=== PATIENT | male | born 1985 | race Caucasian/White ===

== ENCOUNTER 2017-07-03 16:46 | Emergency (ER) | payer OTHER ==
[~2017-07-03] VITALS: Ht 188 cm; Wt 78.2 kg
[2017-07-03 16:59] VITALS: TEMP 37.2; Ht 188 cm; Wt 78.2 kg
[2017-07-03] MEDS ORDERED: KETOROLAC TROMETHAMINE 30 MG/ML VIAL IV STA (17:11)
[2017-07-03] MEDS ORDERED: MoRPHine SULFATE 4 MG/ML 1 ML CARP\\VIAL IV STA ×2 (17:11→19:16)
[2017-07-03] MEDS ORDERED: SODIUM CHLORIDE 0.9% 1000ML 1,000 ML IV STA (17:11)
[2017-07-03] MEDS ORDERED: MIRT30TA2 PO (17:29)
[2017-07-03] MEDS ORDERED: DUTA1CAP3 PO (17:29)
[2017-07-03 17:54] LABS: BASO % 0.5 %; BASO ABS # 0.04 K/uL (0-0.2); EOS % 0.8 %; EOS ABS # 0.06 K/uL (0-0.5); HEMATOCRIT 42.5 % (42-52); HEMOGLOBIN 14.5 g/dL (14.0-18.0); IG# 0.01 K/uL (0.00-0.02); LYMPH % 30.8 %; LYMPH ABS # 2.25 K/uL (1.2-3.4); MEAN CELL VOLUME 87.1 fL (80-100); MEAN CORPUSCULAR HEMOGLOBIN 29.7 pg (25-34); MEAN CORPUSCULAR HGB CONC 34.1 g/dl (32-36); MEAN PLATELET VOLUME 10.3 fL (7.4-10.4); MONO % 7.7 %; MONO ABS # 0.56 K/uL (0.11-0.59); NEUT % 60.1 %; NEUT ABS # 4.39 K/uL (1.4-6.5); PLATELET COUNT 191 K/uL (130-400); RED CELL DISTRIBUTION WIDTH CV 13.1 % (11.5-14.5); RED CELL DISTRIBUTION WIDTH SD 42.1 fL (36.4-46.3); WHITE BLOOD COUNT 7.31 K/uL (4.8-10.8)
[2017-07-03 18:09] LABS: ALBUMIN 4.3 gm/dl (3.4-5.0); CALCIUM 9.5 mg/dl (8.5-10.1); CREATININE 0.8 mg/dl (0.60-1.40); POTASSIUM 3.7 mmol/L (3.5-5.1)
[2017-07-03 18:12] LABS: TOTAL PROTEIN 7.8 gm/dl (6.4-8.2)
--- NOTE | 2017-07-03 19:04 | DIAGNOSTIC IMAGING REPORT ---
CT SCAN OF THE ABDOMEN AND PELVIS WITH IV CONTRAST CLINICAL HISTORY: Right lower quadrant abdominal pain. COMPARISON STUDY: No priors. Diarrhea. Vomiting. TECHNIQUE: Following the IV administration of 94 cc of Optiray 320, CT scan of the abdomen and pelvis is performed from the lung bases to the proximal femora. Images are reviewed in the axial, sagittal, and coronal planes. IV contrast was administered without complication. A dose lowering technique was utilized adhering to the principles of ALARA. CT DOSE: 287.78 mGy.cm FINDINGS: Lung bases: The heart is normal in size and without pericardial effusion. The lung bases are clear. Liver: The contrast-enhanced liver is normal in size, contour, and attenuation. There is no intrahepatic biliary ductal dilatation. The hepatic veins and portal veins are patent. Gallbladder: Unremarkable. Spleen: Normal in size and attenuation. There are calcified splenic granulomas. Pancreas: Unremarkable. Adrenal glands: Unremarkable. Kidneys: The contrast enhanced kidneys are normal in size and without hydronephrosis. The kidneys enhance symmetrically. Abdominal vasculature: The abdominal aorta is normal in course and caliber. Bowel: The small bowel and colon are normal in course and caliber. The appendix is well-visualized and normal. Peritoneum: There is no intraperitoneal free air or abdominal ascites. Lymphadenopathy: None. Pelvic viscera: The bladder, prostate, and seminal vesicles are normal as visualized. Skeletal structures: No lytic or blastic lesions are seen. IMPRESSION: There are no acute infectious or inflammatory findings in the abdomen or pelvis. Electronically signed by: Jacob Garnica M.D. 07/03/2017 7:02 PM Dictated Date/Time: 07/03/2017 6:59 PM
[2017-07-03 19:07] VITALS: BP 125/74; PULSE 65; O2SAT 97
--- NOTE | 2017-07-03 20:56 | EMERGENCY ROOM VISIT NOTE ---
History Report prepared by Amor: Asha Oliveros Under the Supervision of: Dr. Loyd Way D.O. First contact with patient: 16:50 Chief Complaint: ABDOMINAL PAIN Stated Complaint: AB PAIN, DIARRHEA, HEMATURIA, VOMITING History of Present Illness The patient is a 32 year old male who presents to the Emergency Room with complaints of persistent RLQ abdominal pain starting this morning. The patient presents to the ED by EMS. The patient has been having this abdominal pain over the past 7 months. The pain goes through to his back. He has had a cystoscopy, colonoscopy, and upper endoscopy which were all negative around 5 months ago. He also has had trouble getting his urine flow started. He had a fever this morning. He has had 4 episodes of vomiting and 2 episodes of diarrhea since this morning. He denies any cough, rhinorrhea, or pain with urination. He denies having any medical problems. He still has his gallbladder and appendix. He denies any history of kidney stones. Source of History: patient Onset: this morning Position: abdomen (RLQ) Quality: other (pain) Timing: other (persistent) Associated Symptoms: + fevers, + nausea, + vomiting, + back pain, + diarrhea , + urinary symptoms, No cough Review of Systems See HPI for pertinent positives & negatives. A total of 10 systems reviewed and were otherwise negative. Past Medical & Surgical No history of kidney stones. Family History No pertinent family history stated. Social History Housing Status: other (fpc) Current/Historical Medications Scheduled Dutasteride (Dutasteride), 0.5 MG PO QAM Mirtazapine Soltab (Remeron Soltab), 30 MG PO HS Allergies Coded Allergies: No Known Allergies (Unverified , 07/03/17) Physical Exam Vital Signs Date Time Temp Pulse Resp B/P (MAP) Pulse Ox O2 Delivery O2 Flow Rate FiO2 07/03/17 19:07 65 18 125/74 97 Room Air 07/03/17 16:59 37.2 93 18 135/82 95 Room Air Physical Exam GENERAL: Laying in bed, holding right abdomen, mild distress EYE EXAM: normal conjunctiva. OROPHARYNX: no exudate, no erythema, lips, buccal mucosa, and tongue normal and mucous membranes are moist NECK: supple, no nuchal rigidity, no adenopathy, non-tender LUNGS: Clear to auscultation. Normal chest wall mechanics HEART: no murmurs, S1 normal and S2 normal ABDOMEN: abdomen soft, tenderness to palpation throughout the entire right side , normo-active bowel sounds, no masses, no rebound or guarding. BACK: Back is symmetrical on inspection and there is no deformity, no midline tenderness, no CVA tenderness. SKIN: no rashes and no bruising UPPER EXTREMITIES: upper extremities are grossly normal. LOWER EXTREMITIES: No pitting edema. NEURO EXAM: Normal sensorium, cranial nerves II-XII grossly intact, normal speech, no gross weakness of arms, no gross weakness of legs. Medical Decision & Procedures ER Provider Diagnostic Interpretation: Radiology results as stated below per my review and the radiologist's interpretation: CT SCAN OF THE ABDOMEN AND PELVIS WITH IV CONTRAST CLINICAL HISTORY: Right lower quadrant abdominal pain. COMPARISON STUDY: No priors. Diarrhea. Vomiting. TECHNIQUE: Following the IV administration of 94 cc of Optiray 320, CT scan of the abdomen and pelvis is performed from the lung bases to the proximal femora. Images are reviewed in the axial, sagittal, and coronal planes. IV contrast was administered without complication. A dose lowering technique was utilized adhering to the principles of ALARA. CT DOSE: 287.78 mGy.cm FINDINGS: Lung bases: The heart is normal in size and without pericardial effusion. The lung bases are clear. Liver: The contrast-enhanced liver is normal in size, contour, and attenuation. There is no intrahepatic biliary ductal dilatation. The hepatic veins and portal veins are patent. Gallbladder: Unremarkable. Spleen: Normal in size and attenuation. There are calcified splenic granulomas. Pancreas: Unremarkable. Adrenal glands: Unremarkable. Kidneys: The contrast enhanced kidneys are normal in size and without hydronephrosis. The kidneys enhance symmetrically. Abdominal vasculature: The abdominal aorta is normal in course and caliber. Bowel: The small bowel and colon are normal in course and caliber. The appendix is well-visualized and normal. Peritoneum: There is no intraperitoneal free air or abdominal ascites. Lymphadenopathy: None. Pelvic viscera: The bladder, prostate, and seminal vesicles are normal as visualized. Skeletal structures: No lytic or blastic lesions are seen. IMPRESSION: There are no acute infectious or inflammatory findings in the abdomen or pelvis. Electronically signed by: Jacob Garnica M.D. 07/03/2017 7:02 PM Dictated Date/Time: 07/03/2017 6:59 PM Laboratory Results 07/03/17 17:03 Red Blood Count 4.88, Mean Corpuscular Volume 87.1, Mean Corpuscular Hemoglobin 29.7, Mean Corpuscular Hemoglobin Concent 34.1, Mean Platelet Volume 10.3, Neutrophils (%) (Auto) 60.1, Lymphocytes (%) (Auto) 30.8, Monocytes (%) (Auto) 7.7, Eosinophils (%) (Auto) 0.8, Basophils (%) (Auto) 0.5, Neutrophils # (Auto) 4.39, Lymphocytes # (Auto) 2.25, Monocytes # (Auto) 0.56, Eosinophils # (Auto) 0.06, Basophils # (Auto) 0.04 07/03/17 17:03 Test 07/03/17 17:03 07/03/17 18:12 White Blood Count 7.31 K/uL (4.8-10.8) Red Blood Count 4.88 M/uL (4.7-6.1) Hemoglobin 14.5 g/dL (14.0-18.0) Hematocrit 42.5 % (42-52) Mean Corpuscular Volume 87.1 fL (80-100) Mean Corpuscular Hemoglobin 29.7 pg (25-34) Mean Corpuscular Hemoglobin Concent 34.1 g/dl (32-36) Platelet Count 191 K/uL (130-400) Mean Platelet Volume 10.3 fL (7.4-10.4) Neutrophils (%) (Auto) 60.1 % Lymphocytes (%) (Auto) 30.8 % Monocytes (%) (Auto) 7.7 % Eosinophils (%) (Auto) 0.8 % Basophils (%) (Auto) 0.5 % Neutrophils # (Auto) 4.39 K/uL (1.4-6.5) Lymphocytes # (Auto) 2.25 K/uL (1.2-3.4) Monocytes # (Auto) 0.56 K/uL (0.11-0.59) Eosinophils # (Auto) 0.06 K/uL (0-0.5) Basophils # (Auto) 0.04 K/uL (0-0.2) RDW Standard Deviation 42.1 fL (36.4-46.3) RDW Coefficient of Variation 13.1 % (11.5-14.5) Immature Granulocyte % (Auto) 0.1 % Immature Granulocyte # (Auto) 0.01 K/uL (0.00-0.02) Anion Gap 7.0 mmol/L (3-11) Est Creatinine Clear Calc Drug Dose 145.3 ml/min Estimated GFR () 136.0 Estimated GFR (Non- 117.4 BUN/Creatinine Ratio 9.1 (10-20) Calcium Level 9.5 mg/dl (8.5-10.1) Total Bilirubin 0.5 mg/dl (0.2-1) Direct Bilirubin 0.1 mg/dl (0-0.2) Aspartate Amino Transf (AST/SGOT) 30 U/L (15-37) Alanine Aminotransferase (ALT/SGPT) 46 U/L (12-78) Alkaline Phosphatase 63 U/L (45-117) Total Protein 7.8 gm/dl (6.4-8.2) Albumin 4.3 gm/dl (3.4-5.0) Lipase 346 U/L (73-393) Urine Color YELLOW Urine Appearance CLEAR (CLEAR) Urine pH 7.0 (4.5-7.5) Urine Specific [place] 1.009 (1.000-1.030) Urine Protein NEG (NEG) Urine Glucose (UA) NEG (NEG) Urine Ketones NEG (NEG) Urine Occult Blood NEG (NEG) Urine Nitrite NEG (NEG) Urine Bilirubin NEG (NEG) Urine Urobilinogen NEG (NEG) Urine Leukocyte Esterase NEG (NEG) Urine WBC (Auto) 0 /hpf (0-5) Urine RBC (Auto) 0-4 /hpf (0-4) Urine Hyaline Casts (Auto) 0 /lpf (0-5) Urine Epithelial Cells (Auto) 0-5 /lpf (0-5) Urine Bacteria (Auto) NEG (NEG) Laboratory results per my review. Medications Administered Medications (Trade) Dose Ordered Sig/Cira Route Start Time Stop Time Status Last Admin Dose Admin Sodium Chloride 1,000 ml @ 999 mls/hr Q1H1M STAT IV 07/03/17 17:11 07/03/17 18:11 DC 07/03/17 17:32 999 MLS/HR Ketorolac Tromethamine (Toradol Inj) 30 mg NOW STAT IV 07/03/17 17:11 07/03/17 17:13 DC 1/19/18 17:33 30 MG Morphine Sulfate (MoRPHine SULFATE INJ) 4 mg NOW STAT IV 07/03/17 17:11 07/03/17 17:13 DC 07/03/17 17:33 4 MG Morphine Sulfate (MoRPHine SULFATE INJ) 4 mg NOW STAT IV 07/03/17 19:16 07/03/17 19:17 DC 07/03/17 19:20 4 MG ED Course ED COURSE: Vital signs were reviewed and showed normal vitals. The patients medical record was reviewed The above diagnostic studies were performed and reviewed. ED treatments and interventions as stated above. 165: The patient was evaluated in room C3. A complete history and physical examination was performed. 171: Morphine Sulfate 4 mg IV, Toradol Inj 30 mg IV, NSS 1000 ml @ 999 mls/hr IV. 1809: I reevaluated the patient. His pain is slightly improved. 1915: Morphine Sulfate 4 mg IV. 1925: Upon reevaluation, the patient is feeling better. I discussed my findings with the patient and he understands and agrees with the treatment plan. Based on the patients age, coexisting illnesses, exam and lab findings the decision to treat as an outpatient was made. The patient remained stable while under my care. The patient appeared well at the time of discharge. Medical Decision Differential diagnoses includes but is not limited to gastritis, peptic ulcer disease, GERD, gallbladder disease, pancreatitis, small bowel obstruction, acute coronary syndrome, pericarditis, ischemic bowel, irritable bowel disease, irritable bowel syndrome, appendicitis, diverticulitis, malignancy, hernia, urinary tract infection, torsion, perforation, trauma, infectious. Patient is a 32-year-old male who presents to ER for right lower quadrant pain which has been present for the past 7 months. He has had this worked up extensively which included a colonoscopy, endoscopy and cystoscopy. Per his report these were all negative. He has vomited and had some diarrhea today. His abdominal exam shows no signs of peritonitis. Vitals were unremarkable. CBC all BMP, LFTs, bilirubin lipase is unremarkable. UA was negative. CT of abdomen and pelvis was completely benign. Patient was updated regards to his findings. He was given 2 doses of morphine. He was discharged follow-up with PCP/fpc physician. Discussed with Pt concerning signs and symptoms to watch out for. Pt was instructed to follow up with their PCP and discussed with the patient their option to return to the ED at anytime for persistent or worsening symptoms. The appropriate anticipatory guidance and out-patient management, including indications for return to the emergency department, were explained at length to the patient and understood. Medication Reconcilliation Current Medication List: was personally reviewed by me Blood Pressure Screening Patient's blood pressure: Normal blood pressure Blood pressure disposition: Did not require urgent referral Impression Primary Impression: Abdominal pain Scribe Attestation The scribe's documentation has been prepared under my direction and personally reviewed by me in its entirety. I confirm that the note above accurately reflects all work, treatment, procedures, and medical decision making performed by me. Departure Information Dispostion Home / Self-Care Referrals [facility], [facility] Forms Call Back Authorization, HOME CARE DOCUMENTATION FORM, IMPORTANT VISIT INFORMATION Patient Instructions Abdominal Pain - [facility], [facility] Additional Instructions Please follow up with your primary care doctor with in the next 24 hours. Any worsening of your symptoms, please return to the ED immediately. This includes any fevers greater than 100.4, worsening pain, chest pain, shortness breath, persistent nausea, vomiting, unable to eat or drink, or any other concerning signs or symptoms from your standpoint. Please take Tylenol or Motrin as needed for pain. Problem Qualifiers Primary Impression: Abdominal pain Abdominal location: unspecified location Qualified Codes: R10.9 - Unspecified abdominal pain
== END 2017-07-03 19:54 | disposition home or self-care (01) ==
LOC: C.EDC 16:51
DX: R10.9 Unspecified abdominal pain (principal)

== ENCOUNTER 2017-08-17 11:43 | Inpatient (IN) | payer OTHER ==
[~2017-08-17] VITALS: Ht 190.5 cm; Wt 71.6 kg
[~2017-08-17 11:43] MED LIST: DUTA1CAP3 PO; MIRT30TA2 PO
[2017-08-17 13:23] LABS: BASO % 0.9 %; BASO ABS # 0.05 K/uL (0-0.2); EOS % 3.1 %; EOS ABS # 0.17 K/uL (0-0.5); HEMATOCRIT 42.8 % (42-52); HEMOGLOBIN 14.6 g/dL (14.0-18.0); IG# 0.01 K/uL (0.00-0.02); MEAN CELL VOLUME 87.3 fL (80-100); MEAN CORPUSCULAR HEMOGLOBIN 29.8 pg (25-34); MEAN CORPUSCULAR HGB CONC 34.1 g/dl (32-36); MEAN PLATELET VOLUME 10.2 fL (7.4-10.4); MONO % 9.6 %; MONO ABS # 0.52 K/uL (0.11-0.59); NEUT % 49.2 %; NEUT ABS # 2.66 K/uL (1.4-6.5); PLATELET COUNT 170 K/uL (130-400); RED CELL DISTRIBUTION WIDTH CV 13.3 % (11.5-14.5); RED CELL DISTRIBUTION WIDTH SD 42.5 fL (36.4-46.3); WHITE BLOOD COUNT 5.41 K/uL (4.8-10.8)
--- NOTE | 2017-08-17 13:26 | DIAGNOSTIC IMAGING REPORT ---
HEAD WITHOUT CONTRAST (CT) CLINICAL HISTORY: 32 years-old Male presenting with EVALUATE WEAKNESS, off balance, facial numbness and tingling, blurred vision in the right, headache, symptoms worsening since yesterday. TECHNIQUE: Multidetector CT imaging of the head was performed without the use of intravenous contrast. IV contrast: None. A dose lowering technique was used consistent with the principles of ALARA (as low as reasonably achievable). COMPARISON: None. CT DOSE (mGy.cm): The estimated cumulative dose is 638.56 mGycm. FINDINGS: Stit[employer] Machine topogram: Unremarkable. Ventricles and sulci normal in size. Brain parenchyma normal in appearance with preserved mcguire-white differentiation. No mass effect or midline shift. No hemorrhage or acute territorial infarct. No extra-axial fluid collection. Paranasal sinuses and mastoid air cells clear. Calvarium intact. IMPRESSION: 1. No acute intracranial abnormality. Electronically signed by: Chapincito Nayak M.D. 08/17/2017 1:25 PM Dictated Date/Time: 08/17/2017 1:23 PM
--- NOTE | 2017-08-17 13:33 | DIAGNOSTIC IMAGING REPORT ---
CHEST ONE VIEW PORTABLE CLINICAL HISTORY: Weakness. Malaise. COMPARISON STUDY: No previous studies for comparison. FINDINGS: The cardiac and mediastinal contours are normal. There is no evidence of focal pulmonary consolidation. There is no evidence of failure. No pleural effusions are visualized.[ IMPRESSION: No active disease in the chest. Electronically signed by: Kristian Rod M.D. 08/17/2017 1:31 PM Dictated Date/Time: 08/17/2017 1:31 PM
[2017-08-17 13:36] LABS: PTT PATIENT 28.5 SECONDS (21.0-31.0)
[2017-08-17] MEDS ORDERED: ACETAMINOPHEN 500 MG TAB PO STA (13:44)
[2017-08-17 13:47] LABS: ALBUMIN 3.8 gm/dl (3.4-5.0); ALT/SGPT 60 U/L (12-78); BLOOD UREA NITROGEN 14 mg/dl (7-18); CALCIUM 9.3 mg/dl (8.5-10.1); CARBON DIOXIDE 32 mmol/L (21-32); CREATININE 0.87 mg/dl (0.60-1.40); GLUCOSE 94 mg/dl (70-99); LIPASE 304 U/L (73-393); POTASSIUM 4.3 mmol/L (3.5-5.1); SODIUM 136 mmol/L (136-145)
[2017-08-17 13:56] LABS: ALKALINE PHOSPHATASE 71 U/L (45-117); AST/SGOT 35 U/L (15-37); CKMB 0.6 ng/ml (0.5-3.6); TOTAL PROTEIN 7.4 gm/dl (6.4-8.2)
[2017-08-17 14:29] VITALS: O2SAT 97; Ht 190.5 cm; Wt 71.6 kg
[2017-08-17] MEDS ORDERED: ASPIRIN 81 MG ECTAB PO ONE (14:42)
[2017-08-17] MEDS ORDERED: PHARMACIST DISCHARGE MED REC CONSULT PRN (14:45)
[2017-08-17] MEDS ORDERED: LORAZEPAM 2 MG/ML 1 ML VIAL IV ONE (15:15)
--- NOTE | 2017-08-17 15:26 | History and Physical ---
History & Physical Date & Time of Service: Aug 17, 2017 at 15:23 Chief Complaint: Stroke Symptoms Primary Care Physician: Get LANDERS History of Present Illness Source: patient, clinic records, hospital records This is a 32yo M from [facility] with a PMH of tobacco use disorder, BPH and chronic hepatitis C who presents with headache and R-sided weakness x 2 days. Patient was in normal state of health until yesterday morning, when he woke up with a L-sided headache located near his religion. Headache pain is throbbing and constant. Associated with L sided tinnitus. Also noticed R sided weakness during lunch yesterday when he tried to lift his lunch tray with R hand and dropped it. When walking back to his room, he notes that he "veered to the right " while walking. Woke up today with tingling in R arm and blurred vision in R eye. Continues to feel weakness in his R arm and chest. Was evaluated in [facility] and sent to ED for further evaluation. He denies any recent trauma or LOC. Denies fevers, chills, diaphoresis, neck pain, chest pain, SOB, abdominal pain, nausea, vomiting, bowel or bladder changes. Denies confusion, facial droop or numbness in any extremity. Denies any family or personal history of stroke. Past Medical/Surgical History Medical Problems: (1) BPH (benign prostatic hyperplasia) Status: Chronic (2) Hepatitis C Status: Chronic (3) PTSD (post-traumatic stress disorder) Status: Chronic (4) Tobacco use disorder Status: Chronic Family History No pertinent family history No known family history of HTN, DM II, CVA or CKD. Social History Smoking Status: Current Every Day Smoker (3-5 cigarettes ) Alcohol Use: none Housing status: other Allergies Coded Allergies: No Known Allergies (Unverified , 08/17/17) Home Medications Scheduled Dutasteride (Dutasteride), 0.5 MG PO QAM Review of Systems Constitutional: No fever, No chills, No sweats, No weight loss, No fatigue Eyes: + worsening of vision (R eye), No eye pain, No redness, No discharge, No diplopia, No problem reported ENT: + tinnitus (Left ear ), No hearing loss, No unusual epistaxis, No nasal symptoms, No sore throat, No dental problems, No trouble swallowing, No problem reported Respiratory: No cough, No sputum, No wheezing, No shortness of breath, No dyspnea on exertion, No dyspnea at rest Cardiovascular: No chest pain, No orthopnea, No edema, No palpitations Abdomen: No pain, No nausea, No vomiting, No diarrhea, No constipation Musculoskeletal: No joint pain, No muscle pain, No swelling, No calf pain Neurologic: + weakness, + numbness/tingling (Numbness of RUE ), + balance problems, No memory loss, No paralysis, No vertigo, No problem reported Psychiatric: + anxiety, No depression symptoms, No anhedonism Physical Exam Vital Signs Date Time Temp Pulse Resp B/P (MAP) Pulse Ox O2 Delivery O2 Flow Rate FiO2 08/17/17 15:02 63 16 110/72 99 Room Air 08/17/17 14:29 97 Room Air 08/17/17 14:11 61 08/17/17 13:36 68 16 113/78 97 Room Air 08/17/17 13:36 97 Room Air 08/17/17 11:45 36.9 73 18 114/72 98 General Appearance: WD/WN, no apparent distress, + pertinent finding (Resting comfortably ) Head: normocephalic, atraumatic Eyes: normal inspection, PERRL, sclerae normal ENT: normal ENT inspection, hearing grossly normal, pharynx normal (moist mucous membranes ) Neck: supple, thyroid normal, trachea midline Respiratory/Chest: chest non-tender, lungs clear, normal breath sounds, no respiratory distress, no accessory muscle use Cardiovascular: regular rate, rhythm, no murmur, normal peripheral pulses Abdomen/GI: non tender, soft, no organomegaly Back: normal inspection Extremities/Musculoskelatal: normal inspection, no calf tenderness, no pedal edema Neurologic/Psych: dye and chemical coordinator II-XII nml as tested, alert, normal mood/affect, oriented x 3, + motor weakness (4/5 MART in R arm, forearm and hand. Trace weakness noted in RLE. LUE and LLE 5/5 MART. ), + pertinent finding (Sensation intact ) Skin: normal color, warm/dry, no rash Diagnostics Laboratory Results Results Past 24 Hours Test 08/17/17 12:20 08/17/17 12:55 08/17/17 15:00 Range/Units Urine Color YELLOW Urine Appearance CLEAR CLEAR Urine pH 8.0 4.5-7.5 Urine Specific [place] 1.011 1.000-1.030 Urine Protein NEG NEG Urine Glucose (UA) NEG NEG Urine Ketones NEG NEG Urine Occult Blood NEG NEG Urine Nitrite NEG NEG Urine Bilirubin NEG NEG Urine Urobilinogen NEG NEG Urine Leukocyte Esterase NEG NEG White Blood Count 5.41 4.8-10.8 K/uL Red Blood Count 4.90 4.7-6.1 M/uL Hemoglobin 14.6 14.0-18.0 g/dL Hematocrit 42.8 42-52 % Mean Corpuscular Volume 87.3 80-100 fL Mean Corpuscular Hemoglobin 29.8 25-34 pg Mean Corpuscular Hemoglobin Concent 34.1 32-36 g/dl Platelet Count 170 130-400 K/uL Mean Platelet Volume 10.2 7.4-10.4 fL Neutrophils (%) (Auto) 49.2 % Lymphocytes (%) (Auto) 37.0 % Monocytes (%) (Auto) 9.6 % Eosinophils (%) (Auto) 3.1 % Basophils (%) (Auto) 0.9 % Neutrophils # (Auto) 2.66 1.4-6.5 K/uL Lymphocytes # (Auto) 2.00 1.2-3.4 K/uL Monocytes # (Auto) 0.52 0.11-0.59 K/uL Eosinophils # (Auto) 0.17 0-0.5 K/uL Basophils # (Auto) 0.05 0-0.2 K/uL RDW Standard Deviation 42.5 36.4-46.3 fL RDW Coefficient of Variation 13.3 11.5-14.5 % Immature Granulocyte % (Auto) 0.2 % Immature Granulocyte # (Auto) 0.01 0.00-0.02 K/uL Prothrombin Time 10.5 9.0-12.0 SECONDS Prothromb Time International Ratio 1.0 0.9-1.1 Activated Partial Thromboplast Time 28.5 21.0-31.0 SECONDS Partial Thromboplastin Ratio 1.1 Sodium Level 136 136-145 mmol/L Potassium Level 4.3 3.5-5.1 mmol/L Chloride Level 101 98-107 mmol/L Carbon Dioxide Level 32 21-32 mmol/L Anion Gap 3.0 3-11 mmol/L Blood Urea Nitrogen 14 7-18 mg/dl Creatinine 0.87 0.60-1.40 mg/dl Est Creatinine Clear Calc Drug Dose 126.4 ml/min Estimated GFR () 131.4 Estimated GFR (Non- 113.4 BUN/Creatinine Ratio 15.8 10-20 Random Glucose 94 70-99 mg/dl Calcium Level 9.3 8.5-10.1 mg/dl Magnesium Level 2.1 1.8-2.4 mg/dl Total Bilirubin 0.6 0.2-1 mg/dl Direct Bilirubin 0.2 0-0.2 mg/dl Aspartate Amino Transf (AST/SGOT) 35 15-37 U/L Alanine Aminotransferase (ALT/SGPT) 60 12-78 U/L Alkaline Phosphatase 71 45-117 U/L Total Creatine Kinase 100 39-308 U/L Creatine Kinase MB 0.6 0.5-3.6 ng/ml Creatine Kinase MB Ratio 0.6 0-3.0 Troponin I < 0.015 0-0.045 ng/ml Total Protein 7.4 6.4-8.2 gm/dl Albumin 3.8 3.4-5.0 gm/dl Lipase 304 73-393 U/L Thyroid Stimulating Hormone (TSH) 0.598 0.300-4.500 uIu/ml Microbiology Results 08/17/17 Urine Culture, Received Pending Diagnostic Radiology CT head: IMPRESSION: 1. No acute intracranial abnormality. CXR normal Normal EKG Impression Assessment and Plan This is a 32yo M from [facility] with a PMH of tobacco use disorder, BPH and chronic hepatitis C who presents with headache and R-sided weakness x 2 days. Right sided weakness: -Weakness noted on exam: RUE, slight weakness in RLE -Rule out CVA -CT head-without acute intracranial abnormalities -Neuro consulted -MRI brain combo -CTA head/neck -Echo with bubble study -Check B12, RPR, fasting lipid panel -Aspirin -Neuro checks -PT, OT, speech therapy evaluations Headache: resolving -Located around L religion -Relieved with PO tylenol BPH: -Cont Avodart DVT Ppx: Lovenox SQ Code status: FULL PCP: [facility] Dispo: Admitted to telemetry. Discharge planning ordered for return to [facility]. Patient seen in collaboration with Dr. Siddiqi. Please see addendum. Attending Note: Patient is a 32 yr male presents with history of headache, right sided weakness , blurry vision, tinnitus and balance issues since 2 days duration. He is an active smoker. Denies any other relevant history. Denies Head trauma, LOC, speech problems, facial droop, Incontinence, chest pain, SOB. Physical Exam: Vitals signs as noted above General Appearance:Moderately built and nourished, no apparent distress Head: normocephalic, Atraumatic Eyes: normal inspection, EOMI, PERRL Neck: supple, Trachea midline Respiratory/Chest: Normal breath sounds, CTA Cardiovascular: S1, S2, No murmur Abdomen/GI:Soft, Non tender, Bowel sounds present Extremities/Musculoskelatal:normal inspection, no edema Neurologic/Psych:AAOX3, LUE 4/5, Otherwise grossly no focal deficits Skin:normal color,warm Assessment and Plan: Stroke Like Symptoms: Not a candidate for tPA- Passed the window period Admit in Tele CT head: showed no acute pathology CTA Head and Neck: unremarkable Stroke work up including lipid panel, A1C, MRI Brain, ECHO start Aspirin, Plavix, statins Neuro checks, Neurology consult PT/OT Allow permissive HTN in setting of acute CVA TSH:normal Tobacco Use Disorder: Corporate Accountant to quit smoking I personally reviewed the record. Patient is interviewed and examined at bedside. Patient's care is coordinated with Samantha Roberson PA-C. Please refer to the documentation above for details of patient's presentation and for discussion of other issues. Advanced Directives Existing Living Will: Yes Existing Power of Mold Construction Supervisor: Yes Resuscitation Status VTE Prophylaxis Will order VTE Prophylaxis: Yes
--- NOTE | 2017-08-17 16:09 | Neurology Consultation ---
Neurology Consultation Date of Consultation: Aug 17, 2017. Attending Physician: Primary Care Physician: Get LANDERS Reason for Consultation: stroke rule out History of Present Illness Source: patient, clinic records, hospital records Javier is a 32 year male prisoner from [facility] chronic hepatitis C, BPH, who states he had woke with a left sided headache yesterday which was throbbing and constant. He notice he was weak on the right and dropped his dinner tray and was walking to the right. He went to his cell and laid down. He told his [place] and was evaluated at the [facility]. They did a neuro eval and his wasn' t bad but on recheck he was unable to do coordinated moves so they brought him to the ED. Currently he is still having a headache, unable to see clearly to the right, right sided UE/LE weakness. He also states he has a high pitched tinnitus in the left ear. denies CP, SOB, abdominal pain, N, V, swallowing issues, past history of headaches, no falls or trauma. No family history of stroke, grandfather heart attack but lived to 90s. smokes 4-5 cigarettes per day , no other drugs, no current EtOH use. only medication he is taking is dutasteride for kidney inflammation? Past Medical/Surgical History Medical Problems: (1) Abdominal pain Status: Acute Social History Smoking Status: Current every day smoker Smokeless Tobacco Use: No Alcohol Use: none Drug Use: none Housing Status: other (prisoner) Allergies Coded Allergies: No Known Allergies (Unverified , 08/17/17) Current Inpatient Medications Current Inpatient Medications Medications (Trade) Dose Ordered Sig/Cira Route Start Time Stop Time Status Last Admin Dose Admin Atorvastatin Calcium (Lipitor Tab) 40 mg QAM PO 08/18/17 09:00 09/17/17 08:59 Aspirin (Ecotrin Tab) 81 mg QAM PO 08/18/17 09:00 09/17/17 08:59 Miscellaneous Information (Pharmacist Discharge Med Rec Consult) 1 ea UD PRN N/A 08/17/17 14:45 09/16/17 14:44 Acetaminophen (Tylenol Tab) 650 mg Q4H PRN PO 08/17/17 14:45 09/16/17 14:44 Miscellaneous Information (Order Awaiting Action) 1 ea QS N/A 08/17/17 16:00 4/4/18 15:59 Enoxaparin Sodium (Lovenox Inj) 40 mg Q24H SC 08/17/17 15:30 09/16/17 15:29 UNV Physical Exam Vital Signs (Past 24 Hrs): Date Time Temp Pulse Resp B/P (MAP) Pulse Ox O2 Delivery O2 Flow Rate FiO2 08/17/17 15:02 63 16 110/72 99 Room Air 08/17/17 14:29 97 Room Air 08/17/17 14:11 61 08/17/17 13:36 68 16 113/78 97 Room Air 08/17/17 13:36 97 Room Air 08/17/17 11:45 36.9 73 18 114/72 98 Physical Exam: Constitutional: appearance nourished, healthy and normal Ears, Nose, Mouth and Throat: mucous membranes moist, no injection and skin normal, eyes normal Cardiovascular: normal S-1 and S-2 and regular rate and rhythm Respiratory: course breath sounds Musculoskeletal: no peripheral edema and good distal pulses Skin: no stigmata of neurocutaneous disease noted and normal and intact Eyes: extraocular muscles intact (EOMI) and pupils equal, round and reactive to light (PERRL), good vascular pulsations NEUROLOGIC EXAMINATION: Mental status: Alert and interactive Oriented to full date and location Oriented to person Speech fluent with no evidence of aphasia Cranial Nerves smile eye brow raise Reflexes: Deep tendon reflexes were symmetrical and graded 2/5. Plantar responses were flexor. Sensory: decreased sensation to vibration, cool touch, GT proprioception absent on right , left all intact Coordination: finger to nose no bipass mild dysmetric Gait/Stance: Posture lying is bed shackles in place Motor: Negative for pronator drift of out stretched arms with eyes closed. Strength: right hand impress associate 5/5, biceps 4/5, triceps 4/5, hip flex 4/5, patellar flex ext 5/ 5 plantar flex /ext 2/5 left hand impress associate biceps triceps 5/5, hip flex 5/5, patellar,plantar flex ext 5/5 Laboratory Results Past 24 Hours: 08/17/17 12:55 Red Blood Count 4.90, Mean Corpuscular Volume 87.3, Mean Corpuscular Hemoglobin 29.8, Mean Corpuscular Hemoglobin Concent 34.1, Mean Platelet Volume 10.2, Neutrophils (%) (Auto) 49.2, Lymphocytes (%) (Auto) 37.0, Monocytes (%) (Auto) 9.6, Eosinophils (%) (Auto) 3.1, Basophils (%) (Auto) 0.9, Neutrophils # (Auto) 2.66, Lymphocytes # (Auto) 2.00, Monocytes # (Auto) 0.52, Eosinophils # (Auto) 0.17, Basophils # (Auto) 0.05 08/17/17 12:55 Test 08/17/17 12:20 08/17/17 12:55 08/17/17 15:00 Urine Color YELLOW Urine Appearance CLEAR (CLEAR) Urine pH 8.0 (4.5-7.5) Urine Specific [place] 1.011 (1.000-1.030) Urine Protein NEG (NEG) Urine Glucose (UA) NEG (NEG) Urine Ketones NEG (NEG) Urine Occult Blood NEG (NEG) Urine Nitrite NEG (NEG) Urine Bilirubin NEG (NEG) Urine Urobilinogen NEG (NEG) Urine Leukocyte Esterase NEG (NEG) White Blood Count 5.41 K/uL (4.8-10.8) Red Blood Count 4.90 M/uL (4.7-6.1) Hemoglobin 14.6 g/dL (14.0-18.0) Hematocrit 42.8 % (42-52) Mean Corpuscular Volume 87.3 fL (80-100) Mean Corpuscular Hemoglobin 29.8 pg (25-34) Mean Corpuscular Hemoglobin Concent 34.1 g/dl (32-36) Platelet Count 170 K/uL (130-400) Mean Platelet Volume 10.2 fL (7.4-10.4) Neutrophils (%) (Auto) 49.2 % Lymphocytes (%) (Auto) 37.0 % Monocytes (%) (Auto) 9.6 % Eosinophils (%) (Auto) 3.1 % Basophils (%) (Auto) 0.9 % Neutrophils # (Auto) 2.66 K/uL (1.4-6.5) Lymphocytes # (Auto) 2.00 K/uL (1.2-3.4) Monocytes # (Auto) 0.52 K/uL (0.11-0.59) Eosinophils # (Auto) 0.17 K/uL (0-0.5) Basophils # (Auto) 0.05 K/uL (0-0.2) RDW Standard Deviation 42.5 fL (36.4-46.3) RDW Coefficient of Variation 13.3 % (11.5-14.5) Immature Granulocyte % (Auto) 0.2 % Immature Granulocyte # (Auto) 0.01 K/uL (0.00-0.02) Prothrombin Time 10.5 SECONDS (9.0-12.0) Prothromb Time International Ratio 1.0 (0.9-1.1) Activated Partial Thromboplast Time 28.5 SECONDS (21.0-31.0) Partial Thromboplastin Ratio 1.1 Anion Gap 3.0 mmol/L (3-11) Est Creatinine Clear Calc Drug Dose 126.4 ml/min Estimated GFR () 131.4 Estimated GFR (Non- 113.4 BUN/Creatinine Ratio 15.8 (10-20) Calcium Level 9.3 mg/dl (8.5-10.1) Magnesium Level 2.1 mg/dl (1.8-2.4) Total Bilirubin 0.6 mg/dl (0.2-1) Direct Bilirubin 0.2 mg/dl (0-0.2) Aspartate Amino Transf (AST/SGOT) 35 U/L (15-37) Alanine Aminotransferase (ALT/SGPT) 60 U/L (12-78) Alkaline Phosphatase 71 U/L (45-117) Total Creatine Kinase 100 U/L (39-308) Creatine Kinase MB 0.6 ng/ml (0.5-3.6) Creatine Kinase MB Ratio 0.6 (0-3.0) Troponin I < 0.015 ng/ml (0-0.045) Total Protein 7.4 gm/dl (6.4-8.2) Albumin 3.8 gm/dl (3.4-5.0) Lipase 304 U/L (73-393) Thyroid Stimulating Hormone (TSH) 0.598 uIu/ml (0.300-4.500) Imaging CT head- . No acute intracranial abnormality. Impression 32 year old male sudden onset of right sided weakness, right sided vision blurred. Plan 1. start plavix 75 mg and aspirin 81 mg daily 2. no indication his blood pressure was elevated during this process- monitor 3. MRI brain with and without -r/o ischemic event 4. TTE r/o cardiac cause of event 5. HTN, DL, DM optimize- LDL <40 6. PT/OT speech for any further needs 7. will need an ophthalmology exam 8. carotid doppler- evaluate vessels of neck 9. further recommendations to follow I have seen and discussed above patient with Dr Dawn Bland, neurology Pt seen and examined, r hemiparesis with migrainous headache. Pt has visual complaints, no field cut,facial asymm aphasia or dysarthria. Mild R HP r arm 4+ rle 4/5 without drift, equal GEOVANNY. Mild dystaxia rue rle. Fairly dense r hemianesthesia but able to perform FNF with eyes closed. Imp migraine, poss migrainous infarction vs stroke. There are nonphysiologic features on exam. Rec vasc ray. Hypercoag state work-up only if scan shows infarct. TIANA Bland MD
[2017-08-17 16:59] VITALS: BP 105/66; PULSE 51; TEMP 37; O2SAT 99
[2017-08-17 17:10] VITALS: O2SAT 98
--- NOTE | 2017-08-17 17:11 | DIAGNOSTIC IMAGING REPORT ---
CT ANGIOGRAM OF THE BRAIN; CT ANGIOGRAM OF THE NECK CLINICAL HISTORY: Strokelike symptoms. COMPARISON STUDY: CT of the brain dated 08/17/2017. TECHNIQUE: Following the IV administration of 93 of Optiray 320, CT angiogram of the head and neck was performed from the aortic arch to the vertex. Images are reviewed in the axial, sagittal, and coronal planes. 3-D MIPS images are created and assessed. IV contrast was administered without complication. All measurements were calculated based on NASCET criteria. A dose lowering technique was utilized adhering to the principles of ALARA. CT DOSE: 565.74 mGy.cm FINDINGS: Brain parenchyma: The brain parenchyma is normal in appearance. There is no hemorrhage, mass effect, or evidence of acute territorial ischemia by CT criteria. There is no evidence of enhancing mass lesion on the angiogram phase images. The ventricles, sulci, and cisterns are normal in configuration. Jo-white matter differentiation is preserved. No extra-axial fluid collection is seen. Thoracic aorta: Visualized portions of the thoracic aorta are normal in caliber. The aortic arch demonstrates standard 3-vessel anatomy. Right carotid arterial system: The right common carotid artery is widely patent, as are the right internal and external carotid arteries. Left carotid arterial system: The left common carotid artery is widely patent, as are the left internal and external carotid arteries. Vertebral arteries: The vertebral arteries are widely patent and codominant. Subclavian arteries: Widely patent bilaterally. Intracranial vasculature: There is origin of the right posterior cerebral artery. The internal carotid arteries are patent at the skull base, as are the anterior and middle cerebral arteries bilaterally. The vertebrobasilar system and posterior cerebral arteries are widely patent. The vertebral arteries are codominant. There is no aneurysm, high-grade stenosis, or focal vessel cut off seen throughout the intracranial circulation. Jugular veins: Widely patent bilaterally. Dural sinuses: Patent. Lung apices: Erythematous change is seen at the apices. Soft tissues: The visualized pharyngeal soft tissues are normal in appearance noting angiographic phase technique. The oropharyngeal airway appears widely patent. The salivary and thyroid glands are normal in appearance. No cervical lymphadenopathy is seen. Skeletal structures: The calvarium appears intact. The cervical spine is within normal limits. Sinuses and mastoids: There is trace mucosal thickening within the maxillary antra. The remaining paranasal sinuses are clear. The mastoid air cells are well pneumatized. Cerumen is noted in the external auditory canal bilaterally. Oral cavity: Numerous dental caries are identified. Orbits: The bony orbits appear intact. Orbital contents are normal in appearance. IMPRESSION: 1. There is no hemorrhage, mass effect, or evidence of acute territorial ischemia by CT criteria. 2. Unremarkable CT angiogram of the brain. 3. Unremarkable CT angiogram of the neck. 4. Numerous dental caries are identified. Follow-up with dentistry is recommended. 5. Emphysema. Electronically signed by: Jacob Garnica M.D. 08/17/2017 5:10 PM Dictated Date/Time: 08/17/2017 4:59 PM
[2017-08-17] MEDS ORDERED: ENOXAPARIN 40 MG/0.4 ML SYR SC SCH (18:00)
[2017-08-17] MEDS: ACETAMINOPHEN 325 MG TAB PO PRN (18:01)
--- NOTE | 2017-08-17 18:55 | ECHOCARDIOGRAM REPORT ---
*NOTICE TO RECEIVING DEMOCRAT AGENCY This information is strictly Confidential and protected under [place] law. [place] law prohibits you from making any further disclosure of this information unless further disclosure is expressly permitted by the written consent of the person to whom it pertains or is authorized by law. A general authorization for the release of medical or other information is not sufficient for this purpose. Hospital accepts no responsibility if the information is made available to any other person, INCLUDING THE PATIENT. Interpretation Summary * Name: LUISA LECHUGA [id number] Study Date: 08/17/2017 03:59 PM BP: 110/72 mmHg * Patient Location: [facility] HR: 55 * : 1985 (M/d/yyyy) Gender: Male Height: 75 in * Age: 32 yrs Ethnicity: CA Weight: 163 lb * Ordering Physician: Samantha Roberson * Referring Physician: Get LANDERS * Performed By: Juan Pablo Ca RCS * * Reason For Study: Cerebral Ischemia/Embolus * BSA: 2.0 m2 * -- Conclusions -- * The left ventricle is normal in size. * Left ventricular systolic function is normal. * Ejection Fraction = 50-55%. * The right ventricular systolic function is normal. * The left atrial size is normal. * Right atrial size is normal. * There is no pericardial effusion. * No significant valvular pathology. Procedure Details * A complete two-dimensional transthoracic echocardiogram was performed (2D, M-mode, Doppler and color flow Doppler). * A saline contrast injection was performed to assess for cardiac shunting. * The injection was performed through an intravenous line in the left arm. * The attending nurse who injected the saline contrast was Blaine Cote RN. * A total of 20 cc of agitated saline was given. Left Ventricle * The left ventricle is normal in size. * There is normal left ventricular wall thickness. * Left ventricular systolic function is normal. * Ejection Fraction = 50-55%. Right Ventricle * The right ventricle is normal size. * The right ventricular systolic function is normal. Atria * The left atrial size is normal. * Right atrial size is normal. * No ASD detected; PFO is not assessed. Mitral Valve * The mitral valve anatomy is normal. * Significant mitral regurgitation is absent. Tricuspid Valve * The tricuspid valve anatomy is normal. * Significant tricuspid regurgitation is absent. Aortic Valve * The aortic valve is tricuspid. The leaflet thickness if normal. There is no aortic stenosis, and no significant insufficiency. * The aortic valve opens well. * There is no significant aortic regurgitation. Pulmonic Valve * The pulmonic valve is not well seen, but is grossly normal. * There is no significant pulmonary regurgitation. Great Vessels * The aortic root and proximal ascending aorta are normal sized. Pericardium/Pleural * There is no pericardial effusion. MMode 2D Measurements and Calculations IVSd 0.96 cm IVSs 1.2 cm LVIDd 5.3 cm LVIDs 3.8 cm LVPWd 0.97 cm LVPWs 1.3 cm IVS/LVPW 0.99 FS 28.1 % EDV(Teich) 136.0 ml ESV(Teich) 62.8 ml EF(Teich) 53.9 % EDV(cubed) 149.9 ml ESV(cubed) 55.8 ml EF(cubed) 62.8 % % IVS thick 27.3 % % LVPW thick 29.6 % LV mass(C)d 192.6 grams LV mass(C)dI 95.7 grams/m\S\2 LV mass(C)s 163.0 grams LV mass(C)sI 81.0 grams/m\S\2 SV(Teich) 73.3 ml SI(Teich) 36.4 ml/m\S\2 SV(cubed) 94.1 ml SI(cubed) 46.8 ml/m\S\2 Ao root diam 3.9 cm Ao root area 12.1 cm\S\2 ACS 2.4 cm LA dimension 3.0 cm LA/Ao 0.75 Doppler Measurements and Calculations MV E max al 49.3 cm/sec MV A max al 35.9 cm/sec MV E/A 1.4 MV P1/2t max al 55.6 cm/sec MV P1/2t 111.1 msec MVA(P1/2t) 2.0 cm\S\2 MV dec slope 146.7 cm/sec\S\2 MV dec time 0.22 sec Ao V2 max 75.8 cm/sec Ao max PG 2.3 mmHg Ao max PG (full) 0.30 mmHg LV V1 max PG 2.0 mmHg LV V1 max 70.6 cm/sec PA V2 max 72.9 cm/sec PA max PG 2.2 mmHg PI max al 160.5 cm/sec PI max PG 10.3 mmHg PI dec slope 136.3 cm/sec\S\2 PI P1/2t 344.9 msec
--- NOTE | 2017-08-17 19:04 | EMERGENCY ROOM VISIT NOTE ---
History Report prepared by Amor: Mónica Bajwa Under the Supervision of: Dr. Rolando Mark M.D. First contact with patient: 12:37 Chief Complaint: STROKE SYMPTOMS Stated Complaint: STROKE SYMPTOMS Nursing Triage Summary: yESTERDAY AM HEADACHE STARTED THEN AT LUNCH HE COULD NOT HOLD HIS LUNCH TRAY NOTICED RIGHT SIDE OF BODY NUMB AND HAVING PROBLEM WALKING STRAIGHT. LEANING MOTE TO RIGHT History of Present Illness The patient is a 32 year old male who presents to the Emergency Room with complaints of stroke like symptoms beginning yesterday at 1300. He reports that yesterday morning he woke up with a headache and his equilibrium was off. He notes he is weak on the right arm, right leg, has a left sided headache, and has visual disturbance on the right side. He reports he dropped his tray while getting lunch yesterday. He denies any recent trauma. Pt denies LOC, fevers, chills, diaphoresis, visual changes, neck pain, chest pain, breathing difficulties, nausea, vomiting, abdominal pain, back pain, melena, hematochezia , urinary symptoms, numbness, lymphadenopathy, rash, or other complaints. Source of History: patient Onset: 1300 yesterday Position: other (right sided) Associated Symptoms: + headache, + weakness Review of Systems See HPI for pertinent positives and negatives. A total of ten systems were reviewed and were otherwise negative. Past Medical & Surgical Medical Problems: (1) BPH (benign prostatic hyperplasia) (2) Hepatitis C (3) PTSD (post-traumatic stress disorder) (4) Tobacco use disorder Family History No pertinent family history Social History Smoking Status: Current Every Day Smoker Smokeless Tobacco Use: Unknown Alcohol Use: other (unknown) Housing Status: other Current/Historical Medications Scheduled Dutasteride (Dutasteride), 0.5 MG PO QAM Allergies Coded Allergies: No Known Allergies (Unverified , 08/17/17) Physical Exam Vital Signs Date Time Temp Pulse Resp B/P (MAP) Pulse Ox O2 Delivery O2 Flow Rate FiO2 08/17/17 14:29 97 Room Air 08/17/17 14:11 61 08/17/17 13:36 68 16 113/78 97 Room Air 08/17/17 13:36 97 Room Air 08/17/17 11:45 36.9 73 18 114/72 98 Physical Exam GENERAL: Awake, alert, well-appearing, in no distress HENT: Normocephalic, atraumatic. Oropharynx unremarkable. EYES: Normal conjunctiva. Sclera non-icteric. NECK: Supple. No nuchal rigidity. FROM. No masses. RESPIRATORY: Clear to auscultation. No wheezes. CARDIAC: Normal rate. Normal rhythm. No murmurs. No rubs. Extremities warm and well perfused. Pulses equal. No JVD. GI: Soft, non-distended. No tenderness to palpation. No rebound or guarding. No masses. RECTAL: Deferred. MUSCULOSKELETAL: Atraumatic. Chest examination reveals no tenderness. The back is symmetrical on inspection without obvious abnormality. There is no CVA tenderness to palpation. No joint edema. LOWER EXTREMITIES: Calves are equal size bilaterally and non-tender. No edema. No discoloration. NEURO: Normal sensorium. No sensory deficits noted. Mild right arm and leg weakness. SKIN: No rash or jaundice noted. Medical Decision & Procedures ER Provider Diagnostic Interpretation: Radiology results as stated below per my review and radiologist interpretation: HEAD WITHOUT CONTRAST (CT) CLINICAL HISTORY: 32 years-old Male presenting with EVALUATE WEAKNESS, off balance, facial numbness and tingling, blurred vision in the right, headache, symptoms worsening since yesterday. TECHNIQUE: Multidetector CT imaging of the head was performed without the use of intravenous contrast. IV contrast: None. A dose lowering technique was used consistent with the principles of ALARA (as low as reasonably achievable). COMPARISON: None. CT DOSE (mGy.cm): The estimated cumulative dose is 638.56 mGycm. FINDINGS: Heel Stainer topogram: Unremarkable. Ventricles and sulci normal in size. Brain parenchyma normal in appearance with preserved mcguire-white differentiation. No mass effect or midline shift. No hemorrhage or acute territorial infarct. No extra-axial fluid collection. Paranasal sinuses and mastoid air cells clear. Calvarium intact. IMPRESSION: 1. No acute intracranial abnormality. Electronically signed by: Chapincito Nayak M.D. 08/17/2017 1:25 PM Dictated Date/Time: 08/17/2017 1:23 PM CHEST ONE VIEW PORTABLE CLINICAL HISTORY: Weakness. Malaise. COMPARISON STUDY: No previous studies for comparison. FINDINGS: The cardiac and mediastinal contours are normal. There is no evidence of focal pulmonary consolidation. There is no evidence of failure. No pleural effusions are visualized.[ IMPRESSION: No active disease in the chest. Electronically signed by: Kristian Rod M.D. 08/17/2017 1:31 PM Dictated Date/Time: 08/17/2017 1:31 PM Laboratory Results 08/17/17 12:55 Red Blood Count 4.90, Mean Corpuscular Volume 87.3, Mean Corpuscular Hemoglobin 29.8, Mean Corpuscular Hemoglobin Concent 34.1, Mean Platelet Volume 10.2, Neutrophils (%) (Auto) 49.2, Lymphocytes (%) (Auto) 37.0, Monocytes (%) (Auto) 9.6, Eosinophils (%) (Auto) 3.1, Basophils (%) (Auto) 0.9, Neutrophils # (Auto) 2.66, Lymphocytes # (Auto) 2.00, Monocytes # (Auto) 0.52, Eosinophils # (Auto) 0.17, Basophils # (Auto) 0.05 08/17/17 12:55 Test 08/17/17 12:20 08/17/17 12:55 Urine Color YELLOW Urine Appearance CLEAR (CLEAR) Urine pH 8.0 (4.5-7.5) Urine Specific [place] 1.011 (1.000-1.030) Urine Protein NEG (NEG) Urine Glucose (UA) NEG (NEG) Urine Ketones NEG (NEG) Urine Occult Blood NEG (NEG) Urine Nitrite NEG (NEG) Urine Bilirubin NEG (NEG) Urine Urobilinogen NEG (NEG) Urine Leukocyte Esterase NEG (NEG) White Blood Count 5.41 K/uL (4.8-10.8) Red Blood Count 4.90 M/uL (4.7-6.1) Hemoglobin 14.6 g/dL (14.0-18.0) Hematocrit 42.8 % (42-52) Mean Corpuscular Volume 87.3 fL (80-100) Mean Corpuscular Hemoglobin 29.8 pg (25-34) Mean Corpuscular Hemoglobin Concent 34.1 g/dl (32-36) Platelet Count 170 K/uL (130-400) Mean Platelet Volume 10.2 fL (7.4-10.4) Neutrophils (%) (Auto) 49.2 % Lymphocytes (%) (Auto) 37.0 % Monocytes (%) (Auto) 9.6 % Eosinophils (%) (Auto) 3.1 % Basophils (%) (Auto) 0.9 % Neutrophils # (Auto) 2.66 K/uL (1.4-6.5) Lymphocytes # (Auto) 2.00 K/uL (1.2-3.4) Monocytes # (Auto) 0.52 K/uL (0.11-0.59) Eosinophils # (Auto) 0.17 K/uL (0-0.5) Basophils # (Auto) 0.05 K/uL (0-0.2) RDW Standard Deviation 42.5 fL (36.4-46.3) RDW Coefficient of Variation 13.3 % (11.5-14.5) Immature Granulocyte % (Auto) 0.2 % Immature Granulocyte # (Auto) 0.01 K/uL (0.00-0.02) Prothrombin Time 10.5 SECONDS (9.0-12.0) Prothromb Time International Ratio 1.0 (0.9-1.1) Activated Partial Thromboplast Time 28.5 SECONDS (21.0-31.0) Partial Thromboplastin Ratio 1.1 Anion Gap 3.0 mmol/L (3-11) Est Creatinine Clear Calc Drug Dose 126.4 ml/min Estimated GFR () 131.4 Estimated GFR (Non- 113.4 BUN/Creatinine Ratio 15.8 (10-20) Calcium Level 9.3 mg/dl (8.5-10.1) Magnesium Level 2.1 mg/dl (1.8-2.4) Total Bilirubin 0.6 mg/dl (0.2-1) Direct Bilirubin 0.2 mg/dl (0-0.2) Aspartate Amino Transf (AST/SGOT) 35 U/L (15-37) Alanine Aminotransferase (ALT/SGPT) 60 U/L (12-78) Alkaline Phosphatase 71 U/L (45-117) Total Creatine Kinase 100 U/L (39-308) Creatine Kinase MB 0.6 ng/ml (0.5-3.6) Creatine Kinase MB Ratio 0.6 (0-3.0) Troponin I < 0.015 ng/ml (0-0.045) Total Protein 7.4 gm/dl (6.4-8.2) Albumin 3.8 gm/dl (3.4-5.0) Lipase 304 U/L (73-393) Thyroid Stimulating Hormone (TSH) 0.598 uIu/ml (0.300-4.500) Laboratory results reviewed by me Medications Administered Medications (Trade) Dose Ordered Sig/Cira Route Start Time Stop Time Status Last Admin Dose Admin Acetaminophen (Tylenol Tab) 1,000 mg NOW STAT PO 08/17/17 13:44 08/17/17 13:45 DC 08/17/17 13:44 1,000 MG Acetaminophen (Tylenol Tab) 650 mg Q4H PRN PO 08/17/17 14:45 09/16/17 14:44 08/17/17 18:01 650 MG ECG Per My Interpretation Indication: weakness Rate (beats per minute): 60 Rhythm: normal sinus Findings: no acute ischemic change, no ectopy, other (RSR prime pattern. Normal intervals otherwise.) ED Course 1300: The patient was evaluated in room A10. A complete history and physical exam was performed. 1344: Tylenol Tab 1000 mg PO 1410: Discussed the patient's case. The patient will be evaluated by Dr. Jersey Roberson, [facility]ist, for further treatment and disposition. Medical Decision Triage Nursing notes reviewed. The patient's presentation and history were concerning for neuro symptoms. Etiologies such as TIA, CVA, metabolic, infection, hypo/hyperglycemia, electrolyte abnormalities, cardiac sources, intracerebral event, toxicologic, neurologic, as well as others were entertained. The patient was evaluated. He had right-sided weakness. He complained of a headache. He had no fever, leukocytosis, or meningeal findings to suggest meningitis. His symptoms were subtle in onset. He had a negative CT scan. The patient's blood work was unremarkable. ECG did not show any dysrhythmia. Given his symptoms further management will be necessary as his workup cannot be easily completed as an outpatient. Consultation was made with the hospitalist service. The patient was evaluated in the Emergency Room for further management. Medication Reconcilliation Current Medication List: was personally reviewed by me Blood Pressure Screening Patient's blood pressure: Normal blood pressure Blood pressure disposition: Did not require urgent referral Consults Time Called: 1400 Consulting Physician: Samantha Roberson PA-C, [facility] team Returned Call: 1410 she will further evaluate the patient. Impression Primary Impression: Right sided weakness Additional Impressions: Headache Stroke-like symptoms Scribe Attestation The scribe's documentation has been prepared under my direction and personally reviewed by me in its entirety. I confirm that the note above accurately reflects all work, treatment, procedures, and medical decision making performed by me. Departure Information Dispostion Being Evaluated By Hospitalist (Dr. Jersey Roberson, [facility] Hospitalist ) Referrals [facility] (PCP) Patient Instructions My [facility] Problem Qualifiers
[2017-08-17] MEDS ORDERED: LORAZEPAM 2 MG/ML 1 ML VIAL IV SCH (19:30)
[2017-08-17 20:38] VITALS: BP 112/68; PULSE 54; TEMP 36.5; O2SAT 98
[2017-08-17] MEDS ORDERED: GADAVIST IV PRN (20:45)
--- NOTE | 2017-08-17 21:02 | DIAGNOSTIC IMAGING REPORT ---
BRAIN COMBO CLINICAL HISTORY: stroke rule out mental status change COMPARISON STUDY: No previous studies for comparison. TECHNIQUE: Utilizing a 1.5 Melida magnet and dedicated coil, multiplanar, multiecho imaging of the brain was performed pre and postcontrast administration. IV administration of 7.4 mL of Gadavist contrast was uneventful. FINDINGS: Diffusion-weighted images are negative for an acute ischemic event. Cerebellar tonsils are low-lying. No evidence for hydrocephalus. Ventricular system is midline. Signal characteristics are uniform throughout. No abnormal postcontrast enhancement. IMPRESSION: 1. Low-lying cerebellar tonsils. 2. Otherwise normal MRI of the brain. 3. No evidence for abnormal postcontrast enhancement. The above report was generated using voice recognition software. It may contain grammatical, syntax or spelling errors. Electronically signed by: Ko Saavedra M.D. 08/17/2017 9:01 PM Dictated Date/Time: 08/17/2017 8:58 PM
[2017-08-18 00:03] VITALS: BP 99/61; PULSE 65; TEMP 36.5; O2SAT 98
[2017-08-18 03:45] VITALS: BP 98/60; PULSE 51; TEMP 36.5; O2SAT 98
[2017-08-18 06:22] LABS: HEMOGLOBIN A1C 5.3 % (4.5-5.6)
[2017-08-18 06:32] LABS: BASO % 0.9 %; BASO ABS # 0.05 K/uL (0-0.2); EOS ABS # 0.29 K/uL (0-0.5); HEMATOCRIT 42.6 % (42-52); HEMOGLOBIN 14.7 g/dL (14.0-18.0); IG# 0.01 K/uL (0.00-0.02); LYMPH % 41.2 %; LYMPH ABS # 2.38 K/uL (1.2-3.4); MEAN CELL VOLUME 86.9 fL (80-100); MEAN CORPUSCULAR HGB CONC 34.5 g/dl (32-36); MONO % 9.7 %; MONO ABS # 0.56 K/uL (0.11-0.59); NEUT ABS # 2.49 K/uL (1.4-6.5); PLATELET COUNT 164 K/uL (130-400); RED CELL DISTRIBUTION WIDTH CV 13.2 % (11.5-14.5); RED CELL DISTRIBUTION WIDTH SD 42.3 fL (36.4-46.3); WHITE BLOOD COUNT 5.78 K/uL (4.8-10.8)
[2017-08-18 07:02] LABS: CALCIUM 9.1 mg/dl (8.5-10.1); CREATININE 0.85 mg/dl (0.60-1.40)
[2017-08-18 07:59] VITALS: BP 124/85; PULSE 72; TEMP 36.8; O2SAT 98
[2017-08-18] MEDS ORDERED: KETOROLAC TROMETHAMINE 30 MG/ML VIAL IV STA (08:52)
[2017-08-18] MEDS ORDERED: ASPIRIN 81 MG ECTAB PO SCH (09:00)
[2017-08-18] MEDS ORDERED: ATORVASTATIN 40 MG TAB PO SCH (09:00)
[2017-08-18] MEDS ORDERED: CLOPIDOGREL BISULFATE 75 MG TAB PO SCH (09:00)
[2017-08-18 12:23] VITALS: BP 131/69; PULSE 69; TEMP 37; O2SAT 99
[2017-08-18] MEDS: ACETAMINOPHEN 325 MG TAB PO PRN (12:23)
[2017-08-18] MEDS ORDERED: SUMATRIPTAN SUCCINATE 6 MG/0.5 ML VIAL SQ ONE (12:30)
--- NOTE | 2017-08-18 14:27 | Neurology Progress Notes ---
Neurology Progress Note Date of Service Aug 18, 2017. Samantha Herrera is a 32 year male prisoner from [facility] chronic hepatitis C, BPH, who states he had woke with a left sided headache yesterday which was throbbing and constant. He notice he was weak on the right and dropped his dinner tray and was walking to the right. He went to his cell and laid down. He told his Tigre and was evaluated at the [facility]. They did a neuro eval and his wasn' t bad but on recheck he was unable to do coordinated moves so they brought him to the ED. Currently he is still having a headache, unable to see clearly to the right, right sided UE/LE weakness. He also states he has a high pitched tinnitus in the left ear. denies CP, SOB, abdominal pain, N, V, swallowing issues, past history of headaches, no falls or trauma. No family history of stroke, grandfather heart attack but lived to 90s. smokes 4-5 cigarettes per day , no other drugs, no current EtOH use. only medication he is taking is dutasteride for kidney inflammation? Today he states the weakness in his arm and leg are unchanged and he still has the headache. He also states he had a visual field cut from midline to right that is blurred vision. denies CP, SOB, abdominal pain, increased weakness, numbness tingling, N, V. Objective Date Time Temp Pulse Resp B/P (MAP) Pulse Ox O2 Delivery O2 Flow Rate FiO2 08/18/17 12:23 37.0 69 18 131/69 (89) 99 08/18/17 12:00 Room Air 08/18/17 08:00 Room Air 08/18/17 07:59 36.8 72 18 124/85 (98) 98 08/18/17 04:00 Room Air 08/18/17 03:45 36.5 51 16 98/60 (73) 98 Room Air 08/18/17 00:03 36.5 65 17 99/61 (74) 98 Room Air 08/18/17 00:00 Room Air 08/17/17 20:38 36.5 54 18 112/68 (83) 98 Room Air 08/17/17 20:00 Room Air 08/17/17 17:10 55 16 106/72 98 3/5/18 17:00 Room Air 08/17/17 16:59 37.0 51 18 105/66 (79) 99 Room Air 08/17/17 15:02 63 16 110/72 99 Room Air 08/17/17 14:29 97 Room Air Last 24 Hours Test 08/17/17 15:43 08/18/17 06:04 Vitamin B12 Level 1133 pg/mL White Blood Count 5.78 K/uL Red Blood Count 4.90 M/uL Hemoglobin 14.7 g/dL Hematocrit 42.6 % Mean Corpuscular Volume 86.9 fL Mean Corpuscular Hemoglobin 30.0 pg Mean Corpuscular Hemoglobin Concent 34.5 g/dl Platelet Count 164 K/uL Mean Platelet Volume 10.0 fL Neutrophils (%) (Auto) 43.0 % Lymphocytes (%) (Auto) 41.2 % Monocytes (%) (Auto) 9.7 % Eosinophils (%) (Auto) 5.0 % Basophils (%) (Auto) 0.9 % Neutrophils # (Auto) 2.49 K/uL Lymphocytes # (Auto) 2.38 K/uL Monocytes # (Auto) 0.56 K/uL Eosinophils # (Auto) 0.29 K/uL Basophils # (Auto) 0.05 K/uL RDW Standard Deviation 42.3 fL RDW Coefficient of Variation 13.2 % Immature Granulocyte % (Auto) 0.2 % Immature Granulocyte # (Auto) 0.01 K/uL Sodium Level 137 mmol/L Potassium Level 4.0 mmol/L Chloride Level 102 mmol/L Carbon Dioxide Level 30 mmol/L Anion Gap 5.0 mmol/L Blood Urea Nitrogen 14 mg/dl Creatinine 0.85 mg/dl Est Creatinine Clear Calc Drug Dose 125.2 ml/min Estimated GFR () 132.7 Estimated GFR (Non- 114.5 BUN/Creatinine Ratio 16.8 Random Glucose 81 mg/dl Calcium Level 9.1 mg/dl Triglycerides Level 67 mg/dl Cholesterol Level 128 mg/dl HDL Cholesterol 52 mg/dl LDL Cholesterol, Calculated 63 mg/dl VLDL Cholesterol, Calculated 13 mg/dl Cholesterol/HDL Ratio 2.5 Imaging: CTA brain and neck - There is no hemorrhage, mass effect, or evidence of acute territorial ischemia by CT criteria. Unremarkable CT angiogram of the brain. Unremarkable CT angiogram of the neck. Numerous dental caries are identified. Follow-up with dentistry is recommended. Emphysema. MRI brain combo- Low-lying cerebellar tonsils. Otherwise normal MRI of the brain. No evidence for abnormal postcontrast enhancement. TTE- * The left ventricle is normal in size. * Left ventricular systolic function is normal. * Ejection Fraction = 50-55%. * The right ventricular systolic function is normal. * The left atrial size is normal. * Right atrial size is normal. * There is no pericardial effusion. * No significant valvular pathology. * no ASD Exam: Physical Exam: Constitutional: appearance nourished, healthy and normal Ears, Nose, Mouth and Throat: mucous membranes moist, no injection and skin normal, eyes normal Cardiovascular: normal S-1 and S-2 and regular rate and rhythm Respiratory: course breath sounds Musculoskeletal: no peripheral edema and good distal pulses Skin: no stigmata of neurocutaneous disease noted and normal and intact Eyes: extraocular muscles intact (EOMI) and pupils equal, round and reactive to light (PERRL), right field blurred from midpoint to right NEUROLOGIC EXAMINATION: Mental status: Alert and interactive Oriented to full date and location Oriented to person Speech fluent with no evidence of aphasia Cranial Nerves smile eye brow raise symmetric Reflexes: Deep tendon reflexes were symmetrical and graded 2/5. Plantar responses were flexor. Sensory: cool touch decrease on right LE Coordination: finger to nose with no bipass Gait/Stance: lying in bed shackled right arm left leg Motor: Negative for pronator drift of out stretched arms with eyes closed. Strength: hand distribution associate biceps triceps deltoid 4+/5 right hand distribution associate biceps triceps deltoids 5/5 left hip flex 5/5 bilaterally patellar planter flex 5/5 bilaterally Current Inpatient Medications Medications (Trade) Dose Ordered Sig/Cira Route Start Time Stop Time Status Last Admin Dose Admin Atorvastatin Calcium (Lipitor Tab) 40 mg QAM PO 08/18/17 09:00 09/17/17 08:59 08/18/17 08:35 40 MG Aspirin (Ecotrin Tab) 81 mg QAM PO 08/18/17 09:00 09/17/17 08:59 08/18/17 08:35 81 MG Miscellaneous Information (Pharmacist Discharge Med Rec Consult) 1 ea UD PRN N/A 08/17/17 14:45 09/16/17 14:44 Acetaminophen (Tylenol Tab) 650 mg Q4H PRN PO 08/17/17 14:45 09/16/17 14:44 08/18/17 12:23 650 MG Miscellaneous Information (Order Awaiting Action) 1 ea QS N/A 08/17/17 16:00 09/16/17 15:59 Enoxaparin Sodium (Lovenox Inj) 40 mg DAILY@1800 SC 08/17/17 18:00 09/16/17 17:59 08/17/17 18:01 40 MG Clopidogrel Bisulfate (plAVix TAB) 75 mg QAM PO 08/18/17 09:00 09/17/17 08:59 08/18/17 08:35 75 MG Gadobutrol (Gadavist) 7.4 mmol UD PRN IV 08/17/17 20:45 08/21/17 20:44 Impression 32 year old male sudden onset of right sided weakness, right sided vision blurred. Plan 1. stop plavix and asa 2. no indication his blood pressure was elevated during this process- monitor 3. MRI brain with and without -r/o ischemic event 4. TTE r/o cardiac cause of event- no ASD 5. HTN, DL, DM optimize- LDL <40- his cholesterol is good at this time 6. PT/OT speech for any further needs 7. will need an ophthalmology exam he is still complaining of blurred vision in his right eye 8. CTA head and neck no abnormalities seen 9. he is now complaining of an ice pick type headache indocin may be a good option, will try a prednisone taper first. 30 mg x 3D, 20 mg x 3 D, 10 mg x 3d then stop. 10. no further work up needed will need to schedule with ophthalmology if can't be done during this admission 11. ok from neurology perspective to discharge back to [facility]. I have seen and discussed above patient with Dr Dawn Bland, neurology Pt seen and examined suspect complicated migraine vs headache with malingering. Try prednisone taper. Does not require prophylactic meds for migraine at present. Pt should see us in follow-up if headaches persists. TIANA Bland MD
[2017-08-18 15:24] VITALS: BP 107/62; PULSE 65; TEMP 36.9; O2SAT 94
[2017-08-18] MEDS ORDERED: PRD10 PO (15:58)
[2017-08-18] MEDS ORDERED: IND/25 PO (16:09)
--- NOTE | 2017-08-18 16:42 | Progress Note ---
Internal Med Progress Note Date of Service: Aug 18, 2017. Provider Documentation: SUBJECTIVE: Reports numbness of right extremities. reports headache left side of head OBJECTIVE: Exam: General- no acute distress Eyes- EOMI Neck- neck midline, no JVD Lungs- CTABL Heart- RRR Abdomen-abdomen, soft, + bowel sounds Extremities/Neuro- diminished response to pain when pressing on nailbeds of left hand compared to the right, motor strength of upper extremities symmetric ASSESSMENT & PLAN: Hospital Course Patient was evaluated in the hospital for headache, blurred vision in right eye , and right sided numbness/diminished response to pain sensation /weakness, Patient had multiple imaging studies that did not find evidence for stroke. Patient was evaluated with inpatient neurology service. Likely diagnosis is complicated migraine as cause of the symptoms Imaging studies as listed Head CT Ventricles and sulci normal in size. Brain parenchyma normal in appearance with preserved jo-white differentiation. No mass effect or midline shift. No hemorrhage or acute territorial infarct. No extra-axial fluid collection. Paranasal sinuses and mastoid air cells clear. Calvarium intact. IMPRESSION: 1. No acute intracranial abnormality Brain MRI Diffusion-weighted images are negative for an acute ischemic event. Cerebellar tonsils are low-lying. No evidence for hydrocephalus. Ventricular system is midline. Signal characteristics are uniform throughout. No abnormal postcontrast enhancement. IMPRESSION: 1. Low-lying cerebellar tonsils. 2. Otherwise normal MRI of the brain. 3. No evidence for abnormal postcontrast enhancement CT ANGIOGRAM OF THE BRAIN; CT ANGIOGRAM OF THE NECK FINDINGS: Brain parenchyma: The brain parenchyma is normal in appearance. There is no hemorrhage, mass effect, or evidence of acute territorial ischemia by CT criteria. There is no evidence of enhancing mass lesion on the angiogram phase images. The ventricles, sulci, and cisterns are normal in configuration. Jo-white matter differentiation is preserved. No extra-axial fluid collection is seen. Thoracic aorta: Visualized portions of the thoracic aorta are normal in caliber. The aortic arch demonstrates standard 3-vessel anatomy. Right carotid arterial system: The right common carotid artery is widely patent , as are the right internal and external carotid arteries. Left carotid arterial system: The left common carotid artery is widely patent, as are the left internal and external carotid arteries. Vertebral arteries: The vertebral arteries are widely patent and codominant. Subclavian arteries: Widely patent bilaterally. Intracranial vasculature: There is origin of the right posterior cerebral artery. The internal carotid arteries are patent at the skull base, as are the anterior and middle cerebral arteries bilaterally. The vertebrobasilar system and posterior cerebral arteries are widely patent. The vertebral arteries are codominant. There is no aneurysm, high-grade stenosis, or focal vessel cut off seen throughout the intracranial circulation. Jugular veins: Widely patent bilaterally. Dural sinuses: Patent. Lung apices: Erythematous change is seen at the apices. Soft tissues: The visualized pharyngeal soft tissues are normal in appearance noting angiographic phase technique. The oropharyngeal airway appears widely patent. The salivary and thyroid glands are normal in appearance. No cervical lymphadenopathy is seen. Skeletal structures: The calvarium appears intact. The cervical spine is within normal limits. Sinuses and mastoids: There is trace mucosal thickening within the maxillary antra. The remaining paranasal sinuses are clear. The mastoid air cells are well pneumatized. Cerumen is noted in the external auditory canal bilaterally. Oral cavity: Numerous dental caries are identified. Orbits: The bony orbits appear intact. Orbital contents are normal in appearance. IMPRESSION: 1. There is no hemorrhage, mass effect, or evidence of acute territorial ischemia by CT criteria. 2. Unremarkable CT angiogram of the brain. DISPOSITION: discharge to correctional facility follow up appointments: primary care doctor and at the request of inpatient neurology service the patient should have ophthalmology evaluation discharge medications: prednisone and indomethacin Vital Signs: Date Time Temp Pulse Resp B/P (MAP) Pulse Ox O2 Delivery O2 Flow Rate FiO2 08/18/17 15:24 36.9 65 20 107/62 (77) 94 Room Air 08/18/17 12:23 37.0 69 18 131/69 (89) 99 08/18/17 12:00 Room Air 08/18/17 08:00 Room Air 08/18/17 07:59 36.8 72 18 124/85 (98) 98 08/18/17 04:00 Room Air 08/18/17 03:45 36.5 51 16 98/60 (73) 98 Room Air 08/18/17 00:03 36.5 65 17 99/61 (74) 98 Room Air 08/18/17 00:00 Room Air 08/17/17 20:38 36.5 54 18 112/68 (83) 98 Room Air 08/17/17 20:00 Room Air 08/17/17 17:10 55 16 106/72 98 08/17/17 17:00 Room Air 08/17/17 16:59 37.0 51 18 105/66 (79) 99 Room Air Lab Results: Results Past 24 Hours Test 08/18/17 06:04 Range/Units White Blood Count 5.78 4.8-10.8 K/uL Red Blood Count 4.90 4.7-6.1 M/uL Hemoglobin 14.7 14.0-18.0 g/dL Hematocrit 42.6 42-52 % Mean Corpuscular Volume 86.9 80-100 fL Mean Corpuscular Hemoglobin 30.0 25-34 pg Mean Corpuscular Hemoglobin Concent 34.5 32-36 g/dl Platelet Count 164 130-400 K/uL Mean Platelet Volume 10.0 7.4-10.4 fL Neutrophils (%) (Auto) 43.0 % Lymphocytes (%) (Auto) 41.2 % Monocytes (%) (Auto) 9.7 % Eosinophils (%) (Auto) 5.0 % Basophils (%) (Auto) 0.9 % Neutrophils # (Auto) 2.49 1.4-6.5 K/uL Lymphocytes # (Auto) 2.38 1.2-3.4 K/uL Monocytes # (Auto) 0.56 0.11-0.59 K/uL Eosinophils # (Auto) 0.29 0-0.5 K/uL Basophils # (Auto) 0.05 0-0.2 K/uL RDW Standard Deviation 42.3 36.4-46.3 fL RDW Coefficient of Variation 13.2 11.5-14.5 % Immature Granulocyte % (Auto) 0.2 % Immature Granulocyte # (Auto) 0.01 0.00-0.02 K/uL Sodium Level 137 136-145 mmol/L Potassium Level 4.0 3.5-5.1 mmol/L Chloride Level 102 98-107 mmol/L Carbon Dioxide Level 30 21-32 mmol/L Anion Gap 5.0 3-11 mmol/L Blood Urea Nitrogen 14 7-18 mg/dl Creatinine 0.85 0.60-1.40 mg/dl Est Creatinine Clear Calc Drug Dose 125.2 ml/min Estimated GFR () 132.7 Estimated GFR (Non- 114.5 BUN/Creatinine Ratio 16.8 10-20 Random Glucose 81 70-99 mg/dl Calcium Level 9.1 8.5-10.1 mg/dl Triglycerides Level 67 0-150 mg/dl Cholesterol Level 128 0-200 mg/dl HDL Cholesterol 52 mg/dl LDL Cholesterol, Calculated 63 mg/dl VLDL Cholesterol, Calculated 13 mg/dl Cholesterol/HDL Ratio 2.5
--- NOTE | 2017-08-18 16:50 | Discharge Instructions ---
Discharge Instructions Date of Service Aug 18, 2017. Admission Reason for Admission: Headache, Right Sided Weakness Discharge Discharge Diagnosis / Problem: complicate migraine,headache,right eye blurred vision,right side weakness Discharge Goals Goal(s): Improve function Activity Recommendations Activity Limitations: per Instructions/Follow-up section Shower/Bathe: no limitations . Instructions / Follow-Up Instructions / Follow-Up Hospital Course Patient was evaluated in the hospital for headache, blurred vision in right eye , and right sided numbness/diminished response to pain sensation /weakness, Patient had multiple imaging studies that did not find evidence for stroke. Patient was evaluated with inpatient neurology service. Likely diagnosis is complicated migraine as cause of the symptoms Imaging studies as listed Head CT Ventricles and sulci normal in size. Brain parenchyma normal in appearance with preserved jo-white differentiation. No mass effect or midline shift. No hemorrhage or acute territorial infarct. No extra-axial fluid collection. Paranasal sinuses and mastoid air cells clear. Calvarium intact. IMPRESSION: 1. No acute intracranial abnormality Brain MRI Diffusion-weighted images are negative for an acute ischemic event. Cerebellar tonsils are low-lying. No evidence for hydrocephalus. Ventricular system is midline. Signal characteristics are uniform throughout. No abnormal postcontrast enhancement. IMPRESSION: 1. Low-lying cerebellar tonsils. 2. Otherwise normal MRI of the brain. 3. No evidence for abnormal postcontrast enhancement CT ANGIOGRAM OF THE BRAIN; CT ANGIOGRAM OF THE NECK FINDINGS: Brain parenchyma: The brain parenchyma is normal in appearance. There is no hemorrhage, mass effect, or evidence of acute territorial ischemia by CT criteria. There is no evidence of enhancing mass lesion on the angiogram phase images. The ventricles, sulci, and cisterns are normal in configuration. Jo-white matter differentiation is preserved. No extra-axial fluid collection is seen. Thoracic aorta: Visualized portions of the thoracic aorta are normal in caliber. The aortic arch demonstrates standard 3-vessel anatomy. Right carotid arterial system: The right common carotid artery is widely patent , as are the right internal and external carotid arteries. Left carotid arterial system: The left common carotid artery is widely patent, as are the left internal and external carotid arteries. Vertebral arteries: The vertebral arteries are widely patent and codominant. Subclavian arteries: Widely patent bilaterally. Intracranial vasculature: There is origin of the right posterior cerebral artery. The internal carotid arteries are patent at the skull base, as are the anterior and middle cerebral arteries bilaterally. The vertebrobasilar system and posterior cerebral arteries are widely patent. The vertebral arteries are codominant. There is no aneurysm, high-grade stenosis, or focal vessel cut off seen throughout the intracranial circulation. Jugular veins: Widely patent bilaterally. Dural sinuses: Patent. Lung apices: Erythematous change is seen at the apices. Soft tissues: The visualized pharyngeal soft tissues are normal in appearance noting angiographic phase technique. The oropharyngeal airway appears widely patent. The salivary and thyroid glands are normal in appearance. No cervical lymphadenopathy is seen. Skeletal structures: The calvarium appears intact. The cervical spine is within normal limits. Sinuses and mastoids: There is trace mucosal thickening within the maxillary antra. The remaining paranasal sinuses are clear. The mastoid air cells are well pneumatized. Cerumen is noted in the external auditory canal bilaterally. Oral cavity: Numerous dental caries are identified. Orbits: The bony orbits appear intact. Orbital contents are normal in appearance. IMPRESSION: 1. There is no hemorrhage, mass effect, or evidence of acute territorial ischemia by CT criteria. 2. Unremarkable CT angiogram of the brain. DISPOSITION: discharge to correctional facility follow up appointments: primary care doctor and at the request of inpatient neurology service the patient should have ophthalmology evaluation discharge medications: prednisone and indomethacin Current Hospital Diet Patient's current hospital diet: AHA Diet (Heart Healthy) Discharge Diet Recommended Diet: AHA Diet (Heart Healthy) Pending Studies Studies pending at discharge: no Laboratory Results 08/18/17 06:04 Red Blood Count 4.90, Mean Corpuscular Volume 86.9, Mean Corpuscular Hemoglobin 30.0, Mean Corpuscular Hemoglobin Concent 34.5, Mean Platelet Volume 10.0, Neutrophils (%) (Auto) 43.0, Lymphocytes (%) (Auto) 41.2, Monocytes (%) (Auto) 9.7, Eosinophils (%) (Auto) 5.0, Basophils (%) (Auto) 0.9, Neutrophils # (Auto) 2.49, Lymphocytes # (Auto) 2.38, Monocytes # (Auto) 0.56, Eosinophils # (Auto) 0.29, Basophils # (Auto) 0.05 08/18/17 06:04 Test 08/17/17 12:20 08/17/17 12:55 08/17/17 15:43 08/18/17 06:04 Urine Color YELLOW Urine Appearance CLEAR (CLEAR) Urine pH 8.0 (4.5-7.5) Urine Specific [place] 1.011 (1.000-1.030) Urine Protein NEG (NEG) Urine Glucose (UA) NEG (NEG) Urine Ketones NEG (NEG) Urine Occult Blood NEG (NEG) Urine Nitrite NEG (NEG) Urine Bilirubin NEG (NEG) Urine Urobilinogen NEG (NEG) Urine Leukocyte Esterase NEG (NEG) Prothrombin Time 10.5 SECONDS (9.0-12.0) Prothromb Time International Ratio 1.0 (0.9-1.1) Activated Partial Thromboplast Time 28.5 SECONDS (21.0-31.0) Partial Thromboplastin Ratio 1.1 Estimated Average Glucose 105 mg/dl Hemoglobin A1c 5.3 % (4.5-5.6) Magnesium Level 2.1 mg/dl (1.8-2.4) Total Bilirubin 0.6 mg/dl (0.2-1) Direct Bilirubin 0.2 mg/dl (0-0.2) Aspartate Amino Transf (AST/SGOT) 35 U/L (15-37) Alanine Aminotransferase (ALT/SGPT) 60 U/L (12-78) Alkaline Phosphatase 71 U/L (45-117) Total Creatine Kinase 100 U/L (39-308) Creatine Kinase MB 0.6 ng/ml (0.5-3.6) Creatine Kinase MB Ratio 0.6 (0-3.0) Troponin I < 0.015 ng/ml (0-0.045) Total Protein 7.4 gm/dl (6.4-8.2) Albumin 3.8 gm/dl (3.4-5.0) Lipase 304 U/L (73-393) Thyroid Stimulating Hormone (TSH) 0.598 uIu/ml (0.300-4.500) Rapid Plasma Reagin NONREACTIVE (NONREACT) Vitamin B12 Level 1133 pg/mL (211-911) White Blood Count 5.78 K/uL (4.8-10.8) Red Blood Count 4.90 M/uL (4.7-6.1) Hemoglobin 14.7 g/dL (14.0-18.0) Hematocrit 42.6 % (42-52) Mean Corpuscular Volume 86.9 fL (80-100) Mean Corpuscular Hemoglobin 30.0 pg (25-34) Mean Corpuscular Hemoglobin Concent 34.5 g/dl (32-36) Platelet Count 164 K/uL (130-400) Mean Platelet Volume 10.0 fL (7.4-10.4) Neutrophils (%) (Auto) 43.0 % Lymphocytes (%) (Auto) 41.2 % Monocytes (%) (Auto) 9.7 % Eosinophils (%) (Auto) 5.0 % Basophils (%) (Auto) 0.9 % Neutrophils # (Auto) 2.49 K/uL (1.4-6.5) Lymphocytes # (Auto) 2.38 K/uL (1.2-3.4) Monocytes # (Auto) 0.56 K/uL (0.11-0.59) Eosinophils # (Auto) 0.29 K/uL (0-0.5) Basophils # (Auto) 0.05 K/uL (0-0.2) RDW Standard Deviation 42.3 fL (36.4-46.3) RDW Coefficient of Variation 13.2 % (11.5-14.5) Immature Granulocyte % (Auto) 0.2 % Immature Granulocyte # (Auto) 0.01 K/uL (0.00-0.02) Anion Gap 5.0 mmol/L (3-11) Est Creatinine Clear Calc Drug Dose 125.2 ml/min Estimated GFR () 132.7 Estimated GFR (Non- 114.5 BUN/Creatinine Ratio 16.8 (10-20) Calcium Level 9.1 mg/dl (8.5-10.1) Triglycerides Level 67 mg/dl (0-150) Cholesterol Level 128 mg/dl (0-200) HDL Cholesterol 52 mg/dl LDL Cholesterol, Calculated 63 mg/dl VLDL Cholesterol, Calculated 13 mg/dl Cholesterol/HDL Ratio 2.5 Date/Time Source Procedure Growth Status 08/17/17 12:20 Urine , Clean Catch Urine Culture - Preliminary NO GROWTH - LESS THAN 1,000 COLONIES/... Resulted Hemoglobin A1c Test 08/17/17 12:55 Range/Units Estimated Average Glucose 105 mg/dl Hemoglobin A1c 5.3 4.5-5.6 % Lipid Panel Test 08/18/17 06:04 Range/Units Triglycerides Level 67 0-150 mg/dl Cholesterol Level 128 0-200 mg/dl HDL Cholesterol 52 mg/dl Cholesterol/HDL Ratio 2.5 LDL Cholesterol, Calculated 63 mg/dl Medical Emergencies . Who to Call and When: Medical Emergencies: If at any time you feel your situation is an emergency, please call 911 immediately. . Non-Emergent Contact Non-Emergency issues call your: Primary Care Provider, Technology Applications Engineer Call Non-Emergent contact if: you have any medication questions . . "Provider Documentation" section prepared by Abram Silva. .
[2017-08-18 16:54] VITALS: BP 107/62; PULSE 65; TEMP 36.9; O2SAT 94
--- NOTE | 2017-08-18 17:53 | Discharge Summary ---
Discharge Summary Date of Service Aug 18, 2017. Discharge Summary Admission Date: Aug 17, 2017 at 14:55 Discharge Date: Aug 18, 2017 Principal Diagnosis: complicate migraine,headache,right eye blurred vision,right side weakness Medication Reconciliation New Medications: Indomethacin (Indocin) 25 Mg Cap 1 CAP PO BID for 5 Days, #10 CAP Prednisone (Prednisone) 10 Mg Tab 30 MG PO DAILY for 9 Days, #18 TAB 30 mg daily for 3 days, 20 mg daily for 3 days, 10 mg daily for 3 days Continued Medications: Dutasteride (Dutasteride) 0.5 Mg Cap 0.5 MG PO QAM Admission Information HPI (per Admitting provider): This is a 32yo M from [facility] with a PMH of tobacco use disorder, BPH and chronic hepatitis C who presents with headache and R-sided weakness x 2 days. Patient was in normal state of health until yesterday morning, when he woke up with a L-sided headache located near his adventism. Headache pain is throbbing and constant. Associated with L sided tinnitus. Also noticed R sided weakness during lunch yesterday when he tried to lift his lunch tray with R hand and dropped it. When walking back to his room, he notes that he "veered to the right " while walking. Woke up today with tingling in R arm and blurred vision in R eye. Continues to feel weakness in his R arm and chest. Was evaluated in [facility] and sent to ED for further evaluation. He denies any recent trauma or LOC. Denies fevers, chills, diaphoresis, neck pain, chest pain, SOB, abdominal pain, nausea, vomiting, bowel or bladder changes. Denies confusion, facial droop or numbness in any extremity. Denies any family or personal history of stroke. Physical Exam (per Admitting): General Appearance: WD/WN, no apparent distress, + pertinent finding ( Resting comfortably ) Head: normocephalic, atraumatic Eyes: normal inspection, PERRL, sclerae normal ENT: normal ENT inspection, hearing grossly normal, pharynx normal (moist mucous membranes ) Neck: supple, thyroid normal, trachea midline Respiratory/Chest: chest non-tender, lungs clear, normal breath sounds, no respiratory distress, no accessory muscle use Cardiovascular: regular rate, rhythm, no murmur, normal peripheral pulses Abdomen/GI: non tender, soft, no organomegaly Back: normal inspection Extremities/Musculoskelatal: normal inspection, no calf tenderness, no pedal edema Neurologic/Psych: private tutor II-XII nml as tested, alert, normal mood/affect, oriented x 3, + motor weakness (4/5 MART in R arm, forearm and hand. Trace weakness noted in RLE. LUE and LLE 5/5 MART. ), + pertinent finding (Sensation intact ) Skin: normal color, warm/dry, no rash Hospital Course Hospital Course Patient was evaluated in the hospital for headache, blurred vision in right eye , and right sided numbness/diminished response to pain sensation /weakness, Patient had multiple imaging studies that did not find evidence for stroke. Patient was evaluated with inpatient neurology service. Likely diagnosis is complicated migraine as cause of the symptoms Imaging studies as listed Head CT Ventricles and sulci normal in size. Brain parenchyma normal in appearance with preserved jo-white differentiation. No mass effect or midline shift. No hemorrhage or acute territorial infarct. No extra-axial fluid collection. Paranasal sinuses and mastoid air cells clear. Calvarium intact. IMPRESSION: 1. No acute intracranial abnormality Brain MRI Diffusion-weighted images are negative for an acute ischemic event. Cerebellar tonsils are low-lying. No evidence for hydrocephalus. Ventricular system is midline. Signal characteristics are uniform throughout. No abnormal postcontrast enhancement. IMPRESSION: 1. Low-lying cerebellar tonsils. 2. Otherwise normal MRI of the brain. 3. No evidence for abnormal postcontrast enhancement CT ANGIOGRAM OF THE BRAIN; CT ANGIOGRAM OF THE NECK FINDINGS: Brain parenchyma: The brain parenchyma is normal in appearance. There is no hemorrhage, mass effect, or evidence of acute territorial ischemia by CT criteria. There is no evidence of enhancing mass lesion on the angiogram phase images. The ventricles, sulci, and cisterns are normal in configuration. Jo-white matter differentiation is preserved. No extra-axial fluid collection is seen. Thoracic aorta: Visualized portions of the thoracic aorta are normal in caliber. The aortic arch demonstrates standard 3-vessel anatomy. Right carotid arterial system: The right common carotid artery is widely patent , as are the right internal and external carotid arteries. Left carotid arterial system: The left common carotid artery is widely patent, as are the left internal and external carotid arteries. Vertebral arteries: The vertebral arteries are widely patent and codominant. Subclavian arteries: Widely patent bilaterally. Intracranial vasculature: There is origin of the right posterior cerebral artery. The internal carotid arteries are patent at the skull base, as are the anterior and middle cerebral arteries bilaterally. The vertebrobasilar system and posterior cerebral arteries are widely patent. The vertebral arteries are codominant. There is no aneurysm, high-grade stenosis, or focal vessel cut off seen throughout the intracranial circulation. Jugular veins: Widely patent bilaterally. Dural sinuses: Patent. Lung apices: Erythematous change is seen at the apices. Soft tissues: The visualized pharyngeal soft tissues are normal in appearance noting angiographic phase technique. The oropharyngeal airway appears widely patent. The salivary and thyroid glands are normal in appearance. No cervical lymphadenopathy is seen. Skeletal structures: The calvarium appears intact. The cervical spine is within normal limits. Sinuses and mastoids: There is trace mucosal thickening within the maxillary antra. The remaining paranasal sinuses are clear. The mastoid air cells are well pneumatized. Cerumen is noted in the external auditory canal bilaterally. Oral cavity: Numerous dental caries are identified. Orbits: The bony orbits appear intact. Orbital contents are normal in appearance. IMPRESSION: 1. There is no hemorrhage, mass effect, or evidence of acute territorial ischemia by CT criteria. 2. Unremarkable CT angiogram of the brain. DISPOSITION: discharge to correctional facility follow up appointments: primary care doctor and at the request of inpatient neurology service the patient should have ophthalmology evaluation discharge medications: prednisone and indomethacin Total time spent on discharge = 60 minutes This includes examination of the patient, discharge planning, medication reconciliation, and communication with other providers. Discharge Instructions see above
--- NOTE | 2017-08-19 15:16 | ECHOCARDIOGRAM REPORT ---
*NOTICE TO RECEIVING [employer] This information is strictly Confidential and protected under [place] law. [place] law prohibits you from making any further disclosure of this information unless further disclosure is expressly permitted by the written consent of the person to whom it pertains or is authorized by law. A general authorization for the release of medical or other information is not sufficient for this purpose. Hospital accepts no responsibility if the information is made available to any other person, INCLUDING THE PATIENT. Interpretation Summary * Name: LUISA LECHUGA [id number] Study Date: 08/17/2017 03:59 PM BP: 110/72 mmHg * Patient Location: [facility] HR: 55 * : 1985 (M/d/yyyy) Gender: Male Height: 75 in * Age: 32 yrs Ethnicity: CA Weight: 163 lb * Ordering Physician: Samantha Roberson * Referring Physician: Get LANDERS * Performed By: Juan Pablo Ca RCS * * Reason For Study: Cerebral Ischemia/Embolus * BSA: 2.0 m2 * -- Conclusions -- * The left ventricle is normal in size. * Left ventricular systolic function is normal. * Ejection Fraction = 50-55%. * The right ventricular systolic function is normal. * The left atrial size is normal. * Right atrial size is normal. * There is no pericardial effusion. * No significant valvular pathology. * No ASD and no atrial septal aneurysm. During the micro-cavitations study there is a small amount of bubbles that cross the atrial septum during Valsalva. The findings indicate a very tiny low risk PFO. Procedure Details * A complete two-dimensional transthoracic echocardiogram was performed (2D, M-mode, Doppler and color flow Doppler). * A saline contrast injection was performed to assess for cardiac shunting. * The injection was performed through an intravenous line in the left arm. * The attending nurse who injected the saline contrast was Blaine Cote RN. * A total of 20 cc of agitated saline was given. Left Ventricle * The left ventricle is normal in size. * There is normal left ventricular wall thickness. * Left ventricular systolic function is normal. * Ejection Fraction = 50-55%. Right Ventricle * The right ventricle is normal size. * The right ventricular systolic function is normal. Atria * The left atrial size is normal. * Right atrial size is normal. * No ASD and no atrial septal aneurysm. During the micro-cavitations study there is a small amount of bubbles that cross the atrial septum during Valsalva. The findings indicate a very tiny low risk PFO. Mitral Valve * The mitral valve anatomy is normal. * Significant mitral regurgitation is absent. Tricuspid Valve * The tricuspid valve anatomy is normal. * Significant tricuspid regurgitation is absent. Aortic Valve * The aortic valve is tricuspid. The leaflet thickness if normal. There is no aortic stenosis, and no significant insufficiency. * The aortic valve opens well. * There is no significant aortic regurgitation. Pulmonic Valve * The pulmonic valve is not well seen, but is grossly normal. * There is no significant pulmonary regurgitation. Great Vessels * The aortic root and proximal ascending aorta are normal sized. Pericardium/Pleural * There is no pericardial effusion. MMode 2D Measurements and Calculations IVSd 0.96 cm IVSs 1.2 cm LVIDd 5.3 cm LVIDs 3.8 cm LVPWd 0.97 cm LVPWs 1.3 cm IVS/LVPW 0.99 FS 28.1 % EDV(Teich) 136.0 ml ESV(Teich) 62.8 ml EF(Teich) 53.9 % EDV(cubed) 149.9 ml ESV(cubed) 55.8 ml EF(cubed) 62.8 % % IVS thick 27.3 % % LVPW thick 29.6 % LV mass(C)d 192.6 grams LV mass(C)dI 95.7 grams/m\S\2 LV mass(C)s 163.0 grams LV mass(C)sI 81.0 grams/m\S\2 SV(Teich) 73.3 ml SI(Teich) 36.4 ml/m\S\2 SV(cubed) 94.1 ml SI(cubed) 46.8 ml/m\S\2 Ao root diam 3.9 cm Ao root area 12.1 cm\S\2 ACS 2.4 cm LA dimension 3.0 cm LA/Ao 0.75 Doppler Measurements and Calculations MV E max al 49.3 cm/sec MV A max al 35.9 cm/sec MV E/A 1.4 MV P1/2t max al 55.6 cm/sec MV P1/2t 111.1 msec MVA(P1/2t) 2.0 cm\S\2 MV dec slope 146.7 cm/sec\S\2 MV dec time 0.22 sec Ao V2 max 75.8 cm/sec Ao max PG 2.3 mmHg Ao max PG (full) 0.30 mmHg LV V1 max PG 2.0 mmHg LV V1 max 70.6 cm/sec PA V2 max 72.9 cm/sec PA max PG 2.2 mmHg PI max al 160.5 cm/sec PI max PG 10.3 mmHg PI dec slope 136.3 cm/sec\S\2 PI P1/2t 344.9 msec
== END 2017-08-18 18:15 | disposition home or self-care (01) | DRG 103 ==
LOC: C.EDB 11:45 → C.2T 14:55 → ENRESERV 15:40
PROVIDERS: ADMIT Internal Medicine; ATTEND Hospitalist
DX: G43.109 Migraine with aura, not intractable, without status migrainosus (principal); G81.91 Hemiplegia, unspecified affecting right dominant side; R20.0 Anesthesia of skin; H53.8 Other visual disturbances; I10 Essential (primary) hypertension; E78.5 Hyperlipidemia, unspecified; B18.2 Chronic viral hepatitis C; N40.0 Benign prostatic hyperplasia without lower urinary tract symptoms; Z79.899 Other long term (current) drug therapy; F17.210 Nicotine dependence, cigarettes, uncomplicated